=== PATIENT | male | born 1940 | race Caucasian/White ===

== ENCOUNTER 2016-10-13 08:48 | Outpatient (CLI) | payer MEDICARE ==
[~2016-10-13] VITALS: Ht 182.9 cm; Wt 112.0 kg
[~2016-10-13 08:48] MED LIST: ASPI325T32 PO; CIME-48; CLOP75TA PO; EZET1TAB41; FENO134C PO; GABA-488 PO; GLBR3T; HCT25T PO; HYDR-3720 PO; HYDR1CAP2; LOVA40TA2 PO; MTP25TSR; OMEG1CAP74 PO; OMEP20CA12 PO; PGLT30T PO; TRIA0.253 PO; WRF5T PO
[2016-10-13 09:13] VITALS: BP 150/85
[2016-10-13] MEDS ORDERED: OMEP40CA36 PO (09:46)
[2016-10-13] MEDS ORDERED: ATOR40TA PO (09:46)
[2016-10-13 10:06] LABS: BASOPHILS % (AUTO) 0 % (0-10); EOSINOPHILS # (AUTO) 0.2 10^3/uL (0.0-0.3); EOSINOPHILS % (AUTO) 4 % (0-10); LYMPHOCYTES % (AUTO) 17 % (12-44); MEAN CORPUSCULAR HEMOGLOBIN 32 PG (25-34); MEAN CORPUSCULAR HGB CONC 32 G/DL (32-36); MEAN CORPUSCULAR VOLUME 101 FL (80-99); MEAN PLATELET VOLUME 9.9 FL (7.4-10.4); MONOCYTES # (AUTO) 0.6 X 10^3 (0.0-1.0); MONOCYTES % (AUTO) 10 % (0-12); NEUTROPHILS % (AUTO) 69 % (42-75); PLATELET COUNT 179 10^3/uL (130-400); RED BLOOD COUNT 3.93 10^6/uL (4.35-5.85); RED CELL DISTRIBUTION WIDTH 14.6 % (10.0-14.5); WHITE BLOOD COUNT 5.8 10^3/uL (4.3-11.0)
[2016-10-13 10:27] LABS: CALCIUM 9.1 MG/DL (8.5-10.1); CREATININE SERUM 2.09 MG/DL (0.60-1.30); POTASSIUM 4.4 MMOL/L (3.6-5.0)
== END 2016-10-13 09:40 | disposition home or self-care (01) ==
LOC: PREOP 08:48
PROVIDERS: ATTEND Orthopaedic Surgery Orthopaedic Surgery of the Spine
DX: Z01.812 Encounter for preprocedural laboratory examination (principal); Z11.2 Encounter for screening for other bacterial diseases; M48.06 Spinal stenosis, lumbar region
CPT/HCPCS: 36415; 80048; 85025; 87081

== ENCOUNTER 2016-10-22 10:20 | Inpatient (IN) | payer MEDICARE ==
[~2016-10-22] VITALS: Ht 182.9 cm; Wt 107.1 kg
[~2016-10-22 10:20] MED LIST changes: +ACET325T49 PO; +ATOR40TA PO; +ATOR40TA70 PO; +BACL10TA PO; +CLOP75TA28 PO; +DOCU100C37 PO; +HYDR-3820 PO; +LACT20SO2 PO; +OMEP40CA36 PO; +ONDA4VIA28 IV; +PIOG30TA26 PO; +POLY17PO23 PO; +SCOP1PAT TD; +WARF-48 PO
[2016-10-22] MEDS ORDERED: HYDROcodone/APAP 5 MG/325 MG (LORTAB) TAB PO PRN (11:30)
--- NOTE | 2016-10-22 11:42 | Physical Therapy Daily Note ---
PT Daily Note-Current Subjective Reports he is exhausted. Reports he has not slept well for 2 nights. Sighs frequently, rubs his head frequently. Pain Numeric Pain Scale: 5-Moderate Pain Location: Posterior Location Body Site: Back (low back) Pain Description: Ache (/sore) Mental Status Patient Orientation: Person, Confused (at times), Place, Time, Situation Transfers Functional [place] Measure 0=Not Assessed/NA 4=Minimal Assistance 1=Total Assistance 5=Supervision or Setup 2=Maximal Assistance 6=Modified [place] 3=Moderate Assistance 7=Complete IndependenceIRFPAI Quality Coding Scale 6 Independent with activity with or without an assistive device 5 Patient requires set up or clean up by helper. Patient completes activity by themselves 4 Supervision or touching assist (CGA). [place] provide cues , steadying assist 3 The helper provides less than half the effort to complete the activity 2 The helper provides more than half the effort to complete the activity 1 Dependent. The helper does all the effort to complete an activity 7 Patient refused to complete or attempt activity 9 The patient did not perform the activity before the current illness or injury 88 Not attempted due to Medical conditions or safety concerns Transfers (B, C, W/C) (FIM): 3 Sit to Lying (QC): 3 (assist to lift both legs into bed) Sit to Stand (QC): 4 (CGA with skilled cues for hand placement) Gait Training Gait (FIM): 2 Distance (FIM): 5=497-50 ft Distance: 50ft Gait Assistive Device: FWW Turns in room and in out of bathroom with fWW with skilled cues for safety. Exercises Seated Therapy Exercises: Ankle pumps, Long arc quads, Hip flexion Seated Reps: 10 (For LE strength to improve gait and transfers. ) Assessment Pt appears "weary" at this time, tired, reports nothing tastes good...in general , does not appear to feel well. Requests a warm blanket. Sips on diet Sprite and chicken broth. Pt in bed post treatment with needs met. Pt is pleasant and cooperative and attentive. PT Plan Problem List Problem List: Activity Tolerance, Functional Strength Treatment/Plan Treatment Plan: Continue Plan of Care Treatment Duration: Nov 05, 2016 Visits Per Week: 10-15 Safety Risks/Education Patient Education: Transfer Techniques, Safety Issues Teaching Recipient: Patient Teaching Methods: Demonstration, Discussion Response to Teaching: Reinforcement Needed Time/GCodes Time In: 1100 Time Out: 1140 Total Billed Treatment Time: 40 Total Billed Treatment visit EX 25 FA 15 KEVIN KAY PT Oct 22, 2016 11:42
--- NOTE | 2016-10-22 11:59 | Physical Therapy Evaluation ---
PT Evaluation-General Medical Diagnosis Admission Date Oct 22, 2016 at 10:20 Medical Diagnosis: spinal stenosis Onset Date: Oct 20, 2016 Therapy Diagnosis Therapy Diagnosis: generalized weakness/debility Height/Weight Height (Feet): 6 Height (Inches): 0.00 Weight (Pounds): 247 Weight (Ounces): 0.0 Weight Bear Status Weight Bearing Restriction: Weight Bearing/Tolerated Location Restriction: LE Bilateral Referral Physician: [place] Reason for Referral: Evaluation/Treatment Medical History Pertinent Medical History: CABG, DM, Renal Insufficiency Additional Medical History s/p L3-5 laminectomy Current History transfer to ARU Reviewed History: Yes Social History Home: Multilevel Current Living Status: Spouse Entry Into Home: Stairs With Railing PT Steps Into Home: 4 PT Steps Inside Home: 18 Prior/Core FIM Prior Level of Function Functional [place] Measure 0=Not Assessed/NA 4=Minimal Assistance 1=Total Assistance 5=Supervision or Setup 2=Maximal Assistance 6=Modified [place] 3=Moderate Assistance 7=Complete [place] Bed Mobility: 7 Transfers (B,C,W/C) (FIM): 7 Gait: 7 Locomotion: 7 PT Evaluation-Current Subjective Patient c/o fatigue, N & V. Agrees to PT. Pain Numeric Pain Scale: 5-Moderate Pain Location: Lower Location Body Site: Back Pain Description: Ache, Acute Comment: incision site Pt/Family Goals return to home next week Objective Patient Orientation: Normal For Age Problem Solving: Good Attachments: Oxygen (2L) ROM/Strength ROM Lower Extremities bilateral LE WFL Strenght Lower Extremities right knee flexion/extension 4-/5; hip flexion 3/5; ankle dorsi/plantarflexion 4 /5 left knee flexion/extension 4-/5; hip flexion 3/5; ankle dorsi/plantarflexion 4/ 5 Integumentary/Posture Integumentary refer to nursing notes Bowel Incontinence: No Bladder Incontinence: No Posture slight trunk flexed posture Neuromuscular (Tone, Coordination, Reflexes) grossly intact coordination Sensory Vision: Functional Hearing: Functional Sensation Right Lower Extremit: Impaired Sensation Left Lower Extremity: Impaired Transfers Functional [place] Measure 0=Not Assessed/NA 4=Minimal Assistance 1=Total Assistance 5=Supervision or Setup 2=Maximal Assistance 6=Modified [place] 3=Moderate Assistance 7=Complete IndependenceIRFPAI Quality Coding Scale 6 Independent with activity with or without an assistive device 5 Patient requires set up or clean up by helper. Patient completes activity by themselves 4 Supervision or touching assist (CGA). [place] provide cues , steadying assist 3 The helper provides less than half the effort to complete the activity 2 The helper provides more than half the effort to complete the activity 1 Dependent. The helper does all the effort to complete an activity 7 Patient refused to complete or attempt activity 9 The patient did not perform the activity before the current illness or injury 88 Not attempted due to Medical conditions or safety concerns Transfers (B, C, W/C) (FIM): 4 Scootin Rollin Roll Left to Right (QC): 4 Supine to/from Sit: 4 Sit to/from Stand: 5 Sit to Lying (QC): 4 Lying to Sitting/Side of Bed(Q: 4 Sit to Stand (QC): 5 Chair/Xyc-mj-Sgclb Xfer(QC): 5 Car Transfer (QC): 4 assist with 1 LE with bed mobility and car transfer Gait Does the Patient Walk?: Yes Mode of Locomotion: Walk Anticipated Mode of Locomotion: Walk Gait (FIM): 5 Distance (FIM): 3=150 ft Walk 10 feet (QC): 5 Walk 50 ft with 2 Turns(QC): 5 Walk 150 ft (QC): 5 Walking 10ft/uneven surface-QC: 5 Distance: 300' x 2' 150' x 1 Gait Level of Assist: 5 Gait Persons Needed: 1 Gait Assistive Device: FWW Comments/Gait Description slow, steady, functional Wheelchair Training Does the Pt Use a Wheelchair?: No Stairs Stairs (FIM): 5 #of Steps: 12 Level of Assist: 5 1 Step (curb) (QC): 5 4 Steps (QC): 5 12 Steps (QC): 5 Balance Sitting Static: Normal Sitting Dynamic: Normal Standing Static: Normal Standing Dynamic: Normal Assessment/Needs 76 y.o. male, will benefit from skilled PT to address functional strength and mobility to improve current LOF and to safely return to home with spouse at maximum LOF. Patient is limited with mobility due to pain and extreme fatigue. Patient requires multiple recovery periods due to fatigue and requires time to complete all functional tasks. Rehab Potential: Good PT Senior Living Goals Senior Living Goals PT Operations Analyst Goals Time Frame: Nov 05, 2016 Transfers (B,C,W/C) (FIM): 6 Sit to Lying (QC): 6 Lying-Sitting on Side/Bed(QC): 6 Sit to Stand (QC): 6 Rollin Roll Left to Right (QC): 6 Chair/Duk-qi-Aihta Xfer(QC): 6 Car Transfer (QC): 6 Does the Patient Walk: Yes Gait (FIM): 6 Gait distance (FIM): 3=150 ft Walk 10 feet (QC): 6 Walk 10ft-Uneven Surface(QC): 6 Walk 50ft with 2 Turns (QC): 6 Walk 150 ft (QC): 6 Gait Level of Assist: 6 Gait Assistive Device: FWW Stairs (FIM): 5 # of Steps: 12 1 Step (curb) (QC): 5 4 Steps (QC): 5 12 Steps (QC): 5 Stairs Level Of Assist: 6 Picking up an Object (QC): 5 PT Plan Problem List Problem List: Activity Tolerance, Functional Strength, Bed Mobility, Other ( pain) Treatment/Plan Treatment Plan: Continue Plan of Care Treatment Plan: Bed Mobility, Education, Functional Activity Porsche, Functional Strength, Group Therapy, Gait, Safety, Therapeutic Exercise, Transfers Treatment Duration: Nov 05, 2016 # of days/week 5-6 Visits Per Week: 11 Minutes/Day (M-F): 60-90 Minutes/Day (Sat/Berrios): PRN Pt/Family Agrees w/Plan: Yes Safety Risks/Education Patient Education: Safety Issues Teaching Recipient: Patient, Significant Other Teaching Methods: Demonstration, Discussion Response to Teaching: Verbalize Understanding, Return Demonstration Discharge Recommendations Therapy D/C Recommendations: Home w/ Family Support, Physical Therapy Home Care Time/GCodes Time In: 1020 Time Out: 1050 Total Billed Treatment Time: 30 Total Billed Treatment 1 visit EVMod 30 min MICHEL LAGUNA PT Oct 22, 2016 11:59
[2016-10-22] MEDS: ACETAMINOPHEN 325 MG TABLET/CAPLET (TYLENOL) PO PRN ×2 (12:20→20:12)
[2016-10-22] MEDS: BACLOFEN 10 MG (LIORESAL) TAB PO PRN ×2 (12:20→20:12)
[2016-10-22] MEDS: ONDANSETRON 4 MG/2 ML (SDV) Z0FRAN IV PRN (15:12)
--- NOTE | 2016-10-22 15:28 | Occupational Therapy Eval ---
OT Evaluation-General/PLF Medical Diagnosis Admission Date Oct 22, 2016 at 10:20 Medical Diagnosis: spinal stenosis, L3-5 PLDF, L5-S1 harware removal Onset Date: Oct 19, 2016 Therapy Diagnosis Therapy Diagnosis: Weakness Height/Weight Height (Feet): 6 Height (Inches): 0.00 Weight (Pounds): 247 Weight (Ounces): 0.0 Precautions Comments back precautions Weight Bear Status Weight Bearing Restriction: Weight Bearing/Tolerated Location Restriction: LE Bilateral Referral Physician: [place] Referral Reason: Activity Tolerance, Self Care, Evaluation/Treatment, Strengthening/ROM Medical History Pertinent Medical History: CABG, DM, PVD, Renal Insufficiency Additional Medical History lumbar surgery x 3, cornea transplant Current History Pt. lives in [place] with spouse. Reviewed History: Yes Social History Home: [facility] Current Living Status: Spouse Entry Into Home: Stairs With Railing Steps Into Home: 4 Steps Inside Home: 18 ADL-Prior Level of Function ADL PLOF Comments Prior to this surgery, pt. was independent with basic self care. DME/Equipment: Shower, Tub/Shower DME/Equipment Comments Pt. has a tub/shower combo on second floor, and shower on first floor. Spouse states that he has a 3 wheeled walker that was given to him, and that he will be needing another one. Pt. does not have a shower seat for the shower. Occupation: Retired Drive Self: Yes OT Current Status Subjective Pt. reports 5/10 back pain. Requests pain medication. OT notified nursing. Appearance Pt. in bed. Agreed to OT treatment. Mental Status/Objective Patient Orientation: Person Attachments: Drains, Oxygen Current Upper Extremity ROM WFL Upper Extremity Strength NT due to back precautions. ADL-Treatment Functional [place] Measure 0=Not Assessed/NA 4=Minimal Assistance 1=Total Assistance 5=Supervision or Setup 2=Maximal Assistance 6=Modified [place] 3=Moderate Assistance 7=Complete IndependenceIRFPAI Quality Coding Scale 6 Independent with activity with or without an assistive device 5 Patient requires set up or clean up by helper. Patient completes activity by themselves 4 Supervision or touching assist (CGA). [place] provide cues , steadying assist 3 The helper provides less than half the effort to complete the activity 2 The helper provides more than half the effort to complete the activity 1 Dependent. The helper does all the effort to complete an activity 7 Patient refused to complete or attempt activity 9 The patient did not perform the activity before the current illness or injury 88 Not attempted due to Medical conditions or safety concerns Lower Body Dressing (FIM): 3 (Pt. requires mod assistance to don socks and shoes. ) Transfers (B, C, W/C) (FIM): 5 (Pt. requires SBA to transfer from supine to and from sit, and sit to stand.) Other Treatments Pt. is educated on back precautions. Pt. is issued adaptive equipment and educated on how to use it. Pt. is issued toilet tongs and educated on how to use them. Pt. and spouse verbalize understanding. Pt. is able to don slippers with LH shoe spoon. Education OT Patient Education: Correct positioning, Energy conservation, Exercise program, Modified ADL techniques, Progress toward Goal/Update tx plan, Purpose of tx/functional activities, Reviewed precautions, Rehab process, Transfer techniques, Use of adapted equipment Teaching Recipient: Patient Teaching Methods: Demonstration, Discussion Response to Teaching: Verbalize Understanding, Return Demonstration OT Short Term Goals Short Term Goals Time Frame: Oct 22, 2016 1=Demonstrate adherence to instructed precautions during ADL tasks. 2=Patient will verbalize/demonstrate understanding of assistive devices/ modifications for ADL. 3=Patient will improve strength/tolerance for activity to enable patient to perform ADL's. OT Grapple Yarder Operator Goals Grapple Yarder Operator Goals Time Frame: Nov 05, 2016 Eating (FIM): 6 Eating (QC): 6 Groomin Oral Hygiene (QC): 6 Bathing(FIM): 5 Shower/Bathe Self (QC): 5 Upper Body Dressing(FIM): 6 Upper Body Dressing (QC): 6 Lower Body Dressing(FIM): 6 Lower Body Dressing (QC): 6 On/Off Footwear (QC): 6 Toileting(FIM): 6 Toileting Hygiene (QC): 6 Transfers (B,C,W/C) (FIM): 6 Toilet/Commode Transfer(FIM): 6 Toilet/Commode Transfer (QC): 6 Shower Transfer(FIM): 5 Additional Goals: 1-Demonstrate ADL Tasks, 2-Verbalize Understanding, 3- ImproveStrength/[place]orsche 1=Demonstrate adherence to instructed precautions during ADL tasks. 2=Patient will verbalize/demonstrate understanding of assistive devices/ modifications for ADL. 3=Patient will improve strength/tolerance for activity to enable patient to perform ADL's. OT Education/Plan Problem List/Assessment Assessment: Decreased Activ Tolerance, Impaired I ADL's, Impaired Self-Care Skills Discharge Recommendations Plan/Recommendations: Continue POC Therapy D/C Recommendations: Home w/ Family Support, Occupational Therapy Home Care Equpiment Recommendations-D/C: Bath Chair Comment Pt. will need a walker. Treatment Plan/Plan of Care Treatment,Training & Education: Yes Patient would benefit from OT for education, treatment and training to promote independence in ADL's, mobility, safety and/or upper extremity function for ADL' s. Plan of Care: ADL Retraining, Functional Mobility, Group Exercise/Act as Ind, UE Funct Exercise/Act Treatment Duration: Nov 05, 2016 Visits Per Week: 10-12 Rehab Potential: Good Time/GCodes Start Time: 12:00 Stop Time: 12:45 Total Time Billed (hr/min): 45 Billed Treatment Time 1, EVmod x 15minutes, ADL x 30minutes FELIPE ALLEN OT Oct 22, 2016 15:28
--- NOTE | 2016-10-22 15:36 | Therapy Group Daily Note ---
Therapy Daily Group Note Other/Notes Pt ambulated with CGA to OT/PT group. Group consisted of introductions (name, place, childhood memories), socialization, activities that promote skills for daily living skills (problem solving, memory, sequencing, UE reach/grasp, core strengthening and fine motor skills). Pt ambulated back to room with CGA. After therapy, sitting in chair with call light/phone in reach. All needs met in room. Start Time: 13:00 Stop Time: 14:10 Total Billed Treatment Time: 70 Total Billed Treatment 1-GRP KEVIN KLEIN Oct 22, 2016 15:36
[2016-10-22] MEDS ORDERED: inSUlin (REGULAR) HUMAN 1 UNIT/0.01 ML (CHARGE PER UNIT) SC SCH (16:00)
[2016-10-22 18:57] VITALS: BP 156/76
--- NOTE | 2016-10-22 19:45 | HISTORY AND PHYSICAL ---
DATE OF SERVICE: 10/22/2016 CHIEF COMPLAINT: Difficulty walking. HISTORY OF PRESENT ILLNESS: The patient is a 76-year-old male with a history of peripheral vascular disease, diabetes mellitus, diabetic retinopathy, diabetic peripheral neuropathy and chronic back pain who underwent L3-5 laminectomy with L3-5 instrumentation with removal of L5 instrumentation and reinsertion of fixation with autograft and allograft with ortho spine at [facility] on 10/19/2016. Postoperatively the patient had some nausea and emesis associated with mild hypoxia felt to be due to morphine. Medications were adjusted. He was referred to inpatient rehabilitation unit for ongoing care and therapies.He has had delirum/confusion potop felt to be due to pain meds PRIOR LEVEL OF FUNCTION: He had been independent and living with his spouse in [place] prior to this but with increasing low back pain radiating into his buttocks. CURRENT LEVEL OF FUNCTION: He reports 5/10 pain in his lower back around the incision site. He is reported to be continent of bowel and bladder. He is min assist for transfers. Standby assist for ambulation short distances with a front wheel walker. The patient is mod assist for lower body dressing, mid assist for upper body dressing, set up for eating and grooming, mod assist for toilet transfers and toileting.He has a DANIELLE drain in place PAST MEDICAL HISTORY: Coronary artery disease, diabetes mellitus, peripheral vascular disease, renal insufficiency. PAST SURGICAL HISTORY: He has had prior lumbar spine surgery. Cornea transplant.He has had several revascularization procedureswith DR Mahendra HARP at [facility] and is maintained on Coumadin ALLERGIES: There are no medication allergies. FAMILY HISTORY: Noncontributory. SOCIAL HISTORY: Retired. Lives with spouse in [place] in a multiple-level home. Originally from [place] near [place]. 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 REVIEW OF SYSTEMS: A 10-point review of systems significant for shortness of breath on supplemental O2, low back incisional pain.Intermittent confusion MEDICATIONS: Therapeutic multivitamins 1 tablet p.o. daily, Protonix 40 mg p.o. daily, Colace 100 mg p.o. b.i.d., lactulose 10 grams p.o. b.i.d., MiraLax 17 grams p.o. each day at bedtime, regular insulin sliding scale regimen four times daily before meals and at bedtime, baclofen 10 mg p.o. p.r.n. spasm, hydrocodone APAP 5 1 tablet p.o. q. 4 hours p.r.n. moderate pain, Tylenol 650 mg p.o. q. 4 hours p.r.n. mild pain, Zofran 4 mg IV q. 4 hours p.r.n. nausea and vomiting.Lipitor 40 mg po Q evening.Plavix 75 mg po q day fenobibrate 134 mg po q day. Gabapentin 600mg po TID. Omeprazole 40 mg po q day. Pioglitazone 30 mg po Q day. Triazolam 0.25 mg po q hs. Coumadin 5 mg alternating with 2.5 mg po q day. PHYSICAL EXAMINATION: GENERAL: Somewhat obese male appearing his stated age, alert and oriented, lying in bed in no acute distress.He has intermittent confusion VITAL SIGNS: O2 saturation is 98% on 3 liters O2 by nasal cannula, BMI 33.5 kg per meter square, HEENT: Vision, speech, hearing grossly intact. No oral lesions noted. O2 by nasal cannula in place. NECK: Supple without mass. HEART: Regular rhythm. LUNGS: Clear. ABDOMEN: Soft, nontender, bowel sounds present. EXTREMITIES: No leg edema, no calf tenderness. SKIN: Incision healing well. MUSCULOSKELETAL: The patient has functional passive range of motion of all 4 extremities. Has functional upper extremity strength. Strength lower extremities 4-/5 left knee flexion and extension, hip flexion 3/5, ankle dorsi/plantar flexion 4/5. Sensation to light touch is impaired in both feet. He has grossly intact coordination.Cognition and orientation varies with time IMPRESSION: 1. Ambulatory dysfunction secondary to lumbar spinal stenosis, status post decompressive laminectomy L3-5, ortho spine, 10/19/2016. 2. Postoperative nausea/emesis, improving with adjustment of medications. 3. Chronic obstructive pulmonary disease, oxygen dependent. 4. Diabetes mellitus type 2. 5. Diabetic peripheral neuropathy. 6. Hypertensive chronic kidney disease, postoperative hypotensive, now normotensive. 7. Nicotine dependence. 8. Osteoarthritis. 9. Hypercholesterolemia. 10. Tremor. 11. Peripheral vascular disease. 12. - Chronically anticoagulated 13. Postoperative anemia. 15. Intermittent confusion with postop delirium felt to be medication related PLAN: The patient will have a comprehensive program of inpatient rehabilitation with a goal of maximizing level of functional independence prior to discharge home with spouse. The patient will have PT/OT 90 minutes each day each discipline 5 days a week for regaining strength, conditioning, balance, ADLs, any patient family caregiver training necessary, any adaptive equipment training necessary. Speech therapy will do cognitive assessment and treat as indicated. Rehabilitation nursing will assist with bowel, bladder, skin care, medication administration, pain management and wound care. Social service to assist with discharge planning and community reentry. Respiratory therapy to assist with O2 administration and wean as able. Followup with ortho spine and hospitalist service as per their schedule. His PCP in [place] is Dr. Tim Burgess.D/C Hydrocodone due to increased confusion and utilize Tylenol as much as possible.Routine admission labs as well as INR and Adjust Coumadin as needed ESTIMATED LENGTH OF STAY: Fourteen days. PROGNOSIS: Rehab prognosis appears good for a goal of discharging home with spouse, modified independent to supervision for ADLs and mobility skills with good wound healing and decreased pain. DIET: Regular. CODE STATUS: Full code. Therapy with cardiac and fall precautions. Job ID: [id number] DocumentID: [id number] Dictated Date: 10/22/2016 18:47:42 Parachute Folder Date: 10/22/2016 19:44:01 Dictated By: SHONDA MCFADDEN MD MTDD
[2016-10-22] MEDS: ATORVASTATIN 40 MG (LIPITOR) TABLET PO SCH (20:11)
[2016-10-22] MEDS: DOCUSATE SODIUM 100 MG (COLACE) CAP PO SCH (20:11)
[2016-10-22] MEDS: warFARin 2.5 MG (COUMADIN) TAB PO SCH (20:12)
[2016-10-22] MEDS: LACTULOSE SYRUP 10GM/15ML (ENULOSE) 30ML UDC PO SCH (20:12)
[2016-10-22] MEDS: FENOFIBRATE 134 MG (LOFIBRA) CAPSULE PO SCH (20:12)
[2016-10-22] MEDS: inSUlin (REGULAR) HUMAN 1 UNIT/0.01 ML (CHARGE PER UNIT) SC SCH (20:13)
[2016-10-22] MEDS: POLYETHYLENE GLYCOL 17 GM (MIRALAX) PACK PO SCH (20:13)
[2016-10-22] MEDS ORDERED: TEMAZEPAM 15 MG (RESTORIL) CAP PO SCH (21:00)
[2016-10-23] MEDS: ACETAMINOPHEN 325 MG TABLET/CAPLET (TYLENOL) PO PRN ×2 (02:39→07:41)
[2016-10-23] MEDS: BACLOFEN 10 MG (LIORESAL) TAB PO PRN (02:39)
[2016-10-23 05:03] VITALS: BP 178/81
[2016-10-23] MEDS: inSUlin (REGULAR) HUMAN 1 UNIT/0.01 ML (CHARGE PER UNIT) SC SCH ×4 (05:46→21:16)
[2016-10-23] MEDS: MULTIVIT W/MINERALS TAB (THERAGRAN M) PO SCH (05:54)
[2016-10-23] MEDS: PIOGLITAZONE 30MG (ACTOS) TAB PO SCH (05:54)
[2016-10-23] MEDS: PANTOPRAZOLE 40 MG (PROTONIX) TAB PO SCH (05:54)
[2016-10-23 06:18] LABS: RED BLOOD COUNT 3.06 10^6/uL (4.35-5.85); RED CELL DISTRIBUTION WIDTH 14.1 % (10.0-14.5); WHITE BLOOD COUNT 6.6 10^3/uL (4.3-11.0)
[2016-10-23 06:43] LABS: CALCIUM 9.6 MG/DL (8.5-10.1); CREATININE SERUM 1.66 MG/DL (0.60-1.30); POTASSIUM 3.9 MMOL/L (3.6-5.0)
[2016-10-23 06:46] LABS: INR 1.1 (0.8-1.4); PROTHROMBIN TIME PATIENT 13.4 SEC (12.2-14.7)
[2016-10-23] MEDS: ONDANSETRON 4 MG/2 ML (SDV) Z0FRAN IV PRN ×2 (07:40→11:57)
[2016-10-23] MEDS: LACTULOSE SYRUP 10GM/15ML (ENULOSE) 30ML UDC PO SCH ×2 (07:41→21:00)
[2016-10-23] MEDS: DOCUSATE SODIUM 100 MG (COLACE) CAP PO SCH ×2 (07:41→20:59)
[2016-10-23] MEDS: CLOPIDOGREL 75 MG (PLAVIX) TABLET PO SCH (07:42)
--- NOTE | 2016-10-23 08:49 | PM&R Post Admission Assessment ---
Post Admission Physician Asses The preadmission screen agrees with the post admission assessment that the patient is a good candidate for inpatient rehabilitation. The patient will have a comprehensive program of inpatient rehabilitation with a goal of maximizing level of functional independence prior to discharge home with spouse. The patient will have PT/OT ninety minutes per day, each discipline, five days a week for gait,strengthening, conditioning, balance, ADLs , any patient/family/caregiver training necessary. Speech therapy to do cognitive assessment and treat as indicated. He does have fluctuating confusion and [place] has been d/cd at this time Will Utilize Tylenol for now Rehabilitation nursing to assist with bowel, bladder, skin, wound care, medication administration, pain management.as well as reorientation Mushroom Cultivator to assist with discharge planning, community reentry. SCD's for DVT prophylaxis.as well as coumadin He appears to be well motivated to participate in three hours of therapy a day. He should be able to tolerate three hours of therapy a day from a medical standpoint and surgical. He should benefit from the three hours of therapy a day. He has a reasonable discharge plan, reasonable discharge rehabilitation goals and a supportive family. He has various comorbidities that need to be closely monitored with medications and treatments adjusted on a daily basis as needed. These include: Pain manangement Postop confusion Chronic anticoagulation HTN with an episode of postop hypotension DM ELOISA 02 dependent Postop nausea CRI Barriers to discharge for this patient who had been independent prior to this are for him to be modified independent to supervision for ADLs and mobility skills prior to discharge home with spouse, so as to lessen the burden of the caregivers. Risks for this patient include: 1. Fall 2. Fracture 3. DVT 4. Pulmonary embolism 5. Wound infection 6. Skin breakdown 7. Contractures 8. Poorly controlled pain 9. Urinary retention 10. UTI 11. Respiratory infection 12. Aspiration 13. worsening confusion 14 Worsening respiratory insufficiemcy 15. Poorly controlled HTN or hypotension 16. Worsening renal insufficiency Estimated Length of Stay: 14 days Prognosis: Rehab prognosis appears good for goal of discharge home with spouse modified independent to supervision for ADLs and mobility skills. SHONDA MCFADDEN MD Oct 23, 2016 08:49
--- NOTE | 2016-10-23 08:55 | Individualized Plan of Care ---
Individualized Plan of Care Rehab Nursing IPOC Order Admission Date Oct 22, 2016 at 10:20 Current Orders Orders Admission-Acute Rehab Unit (10/22/16 11:22) Vital Signs: Routine 08,16,00 (10/22/16 11:22) Social Service (10/22/16 11:22) Rehab Nursing Orders-Ipoc (10/22/16 11:22) Physical Therapy Rehab Orders (10/22/16 11:22) Occupational Therapy Rehab Ord (10/22/16 11:22) Speech Therapy Rehab Orders (10/22/16 11:22) Intake & Output Shift Assessme 06,14, (10/22/16 11:22) Precautions (Aru) (10/22/16 11:22) Weekly Weight (Lbs) WEEK (10/22/16 11:22) Oxygen-Administer 07,19 (10/22/16 11:27) Sequential Compression Device 08,20 (10/22/16 11:27) General/Regular (10/22/16 Dinner) Baclofen Tablet (Lioresal Tablet) (10/22/16 11:30) Docusate Sodium Capsule (Colace Capsule) (10/22/16 21:00) Lactulose Oral Solution (Enulose Oral So (10/22/16 21:00) Hydrocodone/Apap 5/325 Tablet (Lortab 5 (10/22/16 11:30) Therapeutic Multivitamin Tab (Vitamins, (10/23/16 07:00) Pantoprazole Tablet (Protonix Tablet) (10/23/16 07:00) Polyethylene Glycol Powder Pkt (Miralax (10/22/16 21:00) Acetaminophen Tablet/Caplet (Tylenol T (10/22/16 11:30) Ondansetron Injection (Zofran Injectio (10/22/16 11:30) Insulin (Regular) Human (Humulin R (Per (10/22/16 16:00) Consult Physician (10/22/16 11:39) Patient Visit (10/22/16 ) Pt Eval Moderate Complexity (10/22/16 ) Patient Visit (10/22/16 ) Exercise Therap, Ea 15 Min (10/22/16 ) Functional Activities, Ea 15 (10/22/16 ) Patient Visit (6/8/17 ) Cbc No Diff (10/23/16 05:00) Basic Metabolic Panel (10/23/16 05:00) Protime With Inr (10/23/16 05:00) Insulin (Regular) Human (Humulin R (Per (10/22/16 21:00) Atorvastatin Tablet (Lipitor) (10/22/16 21:00) Clopidogrel Tablet (Plavix Tablet) (10/23/16 09:00) Fenofibrate,Micronized Capsule (Lofibra (10/22/16 21:00) Pioglitazone Tablet (Actos Tablet) (10/23/16 07:00) Pharmacy Communication (Pharmacy Communi (10/22/16 19:45) Warfarin Tablet (Coumadin Tablet) (10/22/16 20:00) Warfarin Tablet (Coumadin Tablet) (10/23/16 18:00) Temazepam Capsule (Restoril Capsule) (10/22/16 21:00) Rehab Nursing Orders: Diseage Management, Edu in Press Rel Techn, Hydration Management, Nutrition Management, Pain Management Toilet every (bladder): (hrs): 2 hours while awake PRN PT IPOC Problem List: Activity Tolerance, Functional Strength, Bed Mobility, Other ( pain) Treatment Plan: Continue Plan of Care Bed Mobility, Education, Functional Activity Porsche, Functional Strength, Group Therapy, Gait, Safety, Therapeutic Exercise, Transfers Treatment Duration: Nov 05, 2016 Visits Per Week: 11 Minutes/Day (M-F): 60-90 Minutes/Day (Sat/Berrios): PRN OT IPOC Problems: Decreased Activ Tolerance, Impaired I ADL's, Impaired Self-Care Skills Plan of Care: ADL Retraining, Functional Mobility, Group Exercise/Act as Ind, UE Funct Exercise/Act Treatment Duration: Nov 05, 2016 Visits Per Week: 10-12 Minutes/Day (M-F): 60-90 Minutes/Day (Sat/Berrios): prn Physician IPOC Medical Issues being managed closely and that require the 24 hour availability of a physician:Postop nausea Postop Confusion Poorly controlled HTN episodes of hypotension Poorly controlled DM Sub or supratherapeutic INR Worsening Resp insufficiency Worsening renal insufficiency Poorly controlled Pain Medical Issues: DVT Prophylaxis, Falls Precautions, Fluid/Electrolyte/ Nutrition Balance, Infection Protection, Pain Management, Wound Care, Other ( List) (as per above) Brief Synthesis of Preadmission Screen, Post-Admission Evaluation, and Therapy Evaluations:76 yo male s/p lumbar spine surgery for spinal stenosis with ortho spine who had postop issues with nausea and confusion felt to be due to meds Pain meds currently being adjusted Patient had been Independent and living with spouse in [facility] prior to this but having increased low back pain, Hospitalist folling patient here as PCP in [place].Patient has had multiple revasculization procedures with DR Mccray in the past at [facility] and is chroncally anticoagulated. The patient has a supportive spouse. Medical Prognosis: good Anticipated Length of Stay: 11-05-16 Rehab Goals Modified Independent for adls and mobilty skills Anticipated discharge destinat: Home with spouse and [facility] SHONDA MCFADDEN MD Oct 23, 2016 08:55
--- NOTE | 2016-10-23 09:04 | PM & R (SOAP) Progress Note ---
Subjective Time Seen by Provider: 08:30 Subjective/Events-last exam Patient was seen in his room this AM Gettting up on his own and going to bathroom on his own with WW and 02 tether line Hydrocodone has been d/cd due to increased confusion but patient having poorly controlled pain with tylenol alone DANIELLE drain remains in place Discussed with RN She will f/u with orthospine and or Hospitalist for further recs Review of Systems Musculoskeletal: back pain Neurological: Confusion Objective Exam Last Set of Vital Signs Vital Signs Date Time Temp Pulse Resp B/P (MAP) Pulse Ox O2 Delivery O2 Flow Rate FiO2 10/23/16 08:01 3.00 10/23/16 05:03 98.2 83 20 178/81 95 Capillary Refill : I&O Bad tableGeneral: Other (confused at times mentation slowed) HEENT: Atraumatic, PERRLA, EOMI, Mucous Memb Moist/[place], Other (o2 in place) Neck: Supple, No JVD Lungs: Other (crackles rt base) Heart: Regular Rate Abdomen: Normal Bowel Sounds, Soft, No Tenderness Extremities: Other (trace edema) Skin: Other (DANIELLE drain in place [place] dressing in place over lumbar spine) Neuro: Other (3/5 strength at hips 4-/5 at knees 4/5 at ankles Decreased sensation to touch at feet) Psych/Mental Status: Other (confused at times) Results Lab Laboratory Tests 10/22/16 15:58: Glucometer 172H 10/22/16 20:08: Glucometer 150H 10/23/16 05:45: Glucometer 126H 10/23/16 06:10: White Blood Count 6.6, Red Blood Count 3.06L, Hemoglobin 9.8L, Hematocrit 31L, Mean Corpuscular Volume 101H, Mean Corpuscular Hemoglobin 32, Mean Corpuscular Hemoglobin Concent 32, Red Cell Distribution Width 14.1, Platelet Count 186, Mean Platelet Volume 9.0, Prothrombin Time 13.4, INR Comment 1.1, Sodium Level 139, Potassium Level 3.9, Chloride Level 105, Carbon Dioxide Level 25, Anion Gap 9, Blood Urea Nitrogen 20H, Creatinine 1.66H, Estimat Glomerular Filtration Rate 41, BUN/Creatinine Ratio 12, Glucose Level 122H, Calcium Level 9.6 Assessment/Plan Assessment s/p Luimbar spine surgery for Spinal stenosis PVD with chronic anticoagulation HTN with episode of hypotension postop Postop nausea DM HLP CRI Reso insuff/ELOISA on supplemental 02 Plan Continue PT/OT/Pain management Trend INR and adjust coumadin as needed WEan from 02 as able F/U with Hospitalist service and orthospine SHONDA Santamaria MD Oct 23, 2016 09:04
--- NOTE | 2016-10-23 11:18 | ST Cognitive Linguistic Eval ---
Speech Evaluation-General Medical Diagnosis Spinal Stenosis, L3-5 PLDF, L5-S1 Harware Removal Onset Date: Oct 19, 2016 Therapy Diagnosis Therapy Diagnosis: Moderate Cognitive Impairment Precautions Precautions/Isolations: Fall Prevention, Standard Precautions, Pressure Ulcer Referral Referring Physician: Dr. Wilberto Magana Medical History Pertinent Medical History: CABG, DM, PVD, Renal Insufficiency Reviewed History: Yes Social History Current Living Status: Spouse Speech PLF-Current Status Prior Level of Function The patient was unable to provide information regarding prior level of cognitive function. Per patient's , the patient was demonstrating "some troubles with memory" prior to the spinal procedure. Subjective The patient was recently admitted to [facility] following a spinal procedure. Post procedure, the patient has demonstrated increased confusion which his family is attributing to his current pain medication. The patient was laying in bed upon entrance. The patient did not greet the clinician , however, was agreeable to participation in the cognitive evaluation. To note: The patient was tearful throughout the majority of the evaluation, however, was unable to communicate to the clinician the reason. Language Eval: Auditory Follows 1-Step Commands: Moderate (Frequent repetition was required for participation and cooperation throughout the evaluation.) Follows General Conversations: Severe (The patient demonstrated continuous tangential thought, rarely responding to conversational questions poised by the clinician.) Language Eval: Verbal Language Produces Auto, Serial Info: Mild Word Finding: Moderate Requests Basic Needs: Mild States Basic Personal Info: Mild Cognitive Patient Orientation The patient was oriented to month and day of week. The patient was unable to state the year or date. Objective Cognitive Domain Attention: Moderate Memory: Moderate Problem Solving: Moderate Objective Impression The patient demonstrated poor attention to task and tangential thought throughout the evaluation. Final results were difficult for the clinician to comprehend due to the level of confusion and emotion the patient was continuously displaying. At this time, the patient demonstrates a moderate cognitive impairment which may be the result of pain medication. Further evaluation with improved cooperation will be necessary for complete results. Communication/Social Cognition Comprehension: 2 Expression: 2 Social Interaction: 1 Problem Solvin Memory: 1 Speech Patient Assess Expression of Ideas/Wants: Frequently (2) Understanding V[place]al Content: Sometimes Understands(2) Brief Interview-Mental Status: Yes Repetition of Three Words: Three (3) Temporal Orientation: Year: No answer (0) Temporal Orientation: Month: Accurate within 5 days(2) Temporal Orientation: Day: Correct (1) Recall : Wear to say "Sock": No, could not recall (0) Recall : Color: No, could not recall (0) Recall : Bed: Yes, no cue required (2) Speech Short Term Goals Short Term Goals Short Term Goals 1. The patient will demonstrated 80% accuracy with simple orientation information, independently. 2. The patient will display 90% accuracy with safety problem solving, independently. 3. The patient will attend to a structured task for three minutes with mild clinician verbal prompting. 4. The patient will demonstrate 80% accuracy with structured executive functioning (sequencing) tasks with mild clinician cueing. Time Frame-STG: One Week Speech C Consultant Goals C Consultant Goals 1. The patient will demonstrate improved cognitive linguistic skills for increased function and safety with ADL's in the least restrictive setting. Time Frame: Two Weeks Comprehension: 3 Expression: 4 Social Interaction: 3 Problem Solvin Memory: 3 Speech-Plan Treatment Plan Speech Therapy Treatment Plan: Continue Plan of Care Continue skilled speech pathology to target improved functional cognitive skills. Treatment Duration: Nov 13, 2016 # of days/week Three to four. Visits Per Week: Three to four. Minutes/Day (M-F): 30 Rehab Potential: Guarded Safety Risks/Education Teaching Recipient: Patient, Family, Significant Other Teaching Methods: Discussion Response to Teaching: Verbalize Understanding Education Topics Provided: Results, Plan of Care Time Speech Therapy Time In: 10:00 Speech Therapy Time Out: 10:30 Total Billed Time: 30 Billed Treatment Time Saul ESTEFANIA PITTMANCAMERON ST Oct 23, 2016 11:18
--- NOTE | 2016-10-23 11:30 | Progress Note-Hospitalist ---
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 Pt had about 30 min of sleep last night Pt takes Triazolam at home for sleep Pt is cold all the time, but he is afebrile Pt presents with early signs of dementia in this examiner's opinion Patient Interview: Pt's was advised to bring Triazolam to the pt; she will return home to retrieve this. A substitute will be provided until then. Pt has had 2 BMs since yesterday Pt has not been eating or sleeping and has been nauseous. Pt's family was reassured that his surgery went very well, but his recovery time may take a while. Pt's is happy with the way his surgery went, but is frustrated with the long recovery time and his lack of sleep. Physical exam stable. Lungs sound perfect. AFVSS, Fatigued but not will and O x 3, family at bedside RRR, CTAB no rales noted No edema Laboratory Tests 10/23/16 06:10 Assessment: s/p uncomplicated L3-5 Laminectomy and L3-5 Instrumention with removal of L5 instrumentation and reinsertion of fixation with autograft and allograft POD # 4 Delirium with N/V and oversedation with mild hypoxia due to morphine and changed to Dilaudid due to renal insufficiency but then had side effects and changed to Fentanyl then had issues with Phenergan and continues to have issues even with low dose Hydrocodone so adding Ultram to the Tylenol CRI slightly improved creatinine 1.66 today and that is his baseline HTN HLP PVD severe DM Presumed ELOISA Tremors due to weakness and narcotics now resolved Post op constipation now resolved Chronic insomnia Plan: Ultram/Tramadol for pain 50 TID Retrieve Triazolam from home and restart for improvement of insomnia I tried my best to reassure the family and the patient and had conferred with Dr. Villanueva regarding the delirium and the vascular dementia component that is an undercurrent of the whole issue and renal insufficiency and sensitivity to pain medication and tried to answer all their questions and reassured but very difficult situation at this time Scribed by Argenis Dodson under the direct supervision of Dr. Poole. JARETH POOLE DO Oct 23, 2016 11:30
--- NOTE | 2016-10-23 12:10 | Physical Therapy Daily Note ---
PT Daily Note-Current Subjective Pt. in bed, agrees to Rx after encouragement from . Pt. very side tracked and distracted by some conversation with his that he continues to bring up about his son getting some medications or something for him from his home. Pt. asking his multiple times and telling this CLEANER OPERATOR he cant participate until he has this taken care of. Pt. for very long time would not rate pain but after a while rates it at 7/10. Pt. c/o nausea that he cant shake. Pain Numeric Pain Scale: 7 Location: Medial Location Body Site: Back Pain Description: Burning Appearance pt. requested this CLEANER OPERATOR look at his back and dressing b/c it feels so uncomfortable back there. CLEANER OPERATOR noted that drain in back is out. Nurse was alerted to this . Drain was taken away, very little drainage noted Mental Status Patient Orientation: Confused, Mumbles Attachments: Oxygen (3L), Other-See Comments (DANIELLE drain which fell out during Rx ) Transfers Functional Kimble Measure 0=Not Assessed/NA 4=Minimal Assistance 1=Total Assistance 5=Supervision or Setup 2=Maximal Assistance 6=Modified Kim[place] 3=Moderate Assistance 7=Complete IndependenceIRFPAI Quality Coding Scale 6 Independent with activity with or without an assistive device 5 Patient requires set up or clean up by helper. Patient completes activity by themselves 4 Supervision or touching assist (CGA). [place] provide cues , steadying assist 3 The helper provides less than half the effort to complete the activity 2 The helper provides more than half the effort to complete the activity 1 Dependent. The helper does all the effort to complete an activity 7 Patient refused to complete or attempt activity 9 The patient did not perform the activity before the current illness or injury 88 Not attempted due to Medical conditions or safety concerns Transfers (B, C, W/C) (FIM): 5 Scootin Rollin Supine to/from Sit: 5 Sit to/from Stand: 5 Bed to/from Chair: 5 Gait Training Does the Patient Walk?: Yes Gait (FIM): 4 Distance (FIM): 3=150 ft (x3) Gait Level of Assist: 4 (only b/c pt. needs assist with O2 and appears confused and somewhat distressed, furrowed brow, look of confusion) Gait Persons Needed: 1 Gait Assistive Device: FWW slow, slightly kyphotic over walker for heavy wt bearing onto FWW Exercises Supine Ex: Ankle pumps, Quad Set, Rolling, Glut sets, Heel Slides, Short Arc Quads, Scooting, Hip abd/add Supine Reps: 15 Standing: Hip Abduction, Heel/toe raises, Marching Standing Reps: 12 NuStep Minutes: 5 NuStep Workload: 1 Treatments pt. c/o his incision pain in his back increased while using nustep. this was not tolerated well and was DCd Assessment Current Status: Fair Progress pt. c/o nausea during rx, appeared somewhat confused . BP 174/94, O2 sats >90% with O2 on. Nausea and c/o limit participation. PT Care Home Goals Care Home Goals PT Senior Foreman Goals Time Frame: Nov 05, 2016 Transfers (B,C,W/C) (FIM): 6 Sit to Lying (QC): 6 Lying-Sitting on Side/Bed(QC): 6 Sit to Stand (QC): 6 Rollin Roll Left to Right (QC): 6 Chair/Ons-lz-Qdckj Xfer(QC): 6 Car Transfer (QC): 6 Does the Patient Walk: Yes Gait (FIM): 6 Gait distance (FIM): 3=150 ft Walk 10 feet (QC): 6 Walk 10ft-Uneven Surface(QC): 6 Walk 50ft with 2 Turns (QC): 6 Walk 150 ft (QC): 6 Gait Level of Assist: 6 Gait Assistive Device: FWW Stairs (FIM): 5 # of Steps: 12 1 Step (curb) (QC): 5 4 Steps (QC): 5 12 Steps (QC): 5 Stairs Level Of Assist: 6 Picking up an Object (QC): 5 PT Plan Treatment/Plan Treatment Plan: Continue Plan of Care Treatment Plan: Bed Mobility, Education, Functional Activity Porsche, Functional Strength, Group Therapy, Gait, Safety, Therapeutic Exercise, Transfers Treatment Duration: Nov 05, 2016 Visits Per Week: 11 Minutes/Day (M-F): 60-90 Minutes/Day (Sat/Berrios): PRN Safety Risks/Education Patient Education: Gait Training, Transfer Techniques Teaching Recipient: Patient Teaching Methods: Demonstration, Discussion Response to Teaching: Verbalize Understanding, Return Demonstration, Reinforcement Needed Time/GCodes Time In: 1100 Time Out: 1200 Total Billed Treatment Time: 60 Total Billed Treatment 1,GT25m,FA20m,EX15m G Codes Necessary: No LUEBBER, JOSE DAVID A CLEANER OPERATOR Oct 23, 2016 12:10
[2016-10-23] MEDS ORDERED: METOCLOPRAMIDE INJ 10 MG/2 ML (REGLAN) IVP NR (13:39)
--- NOTE | 2016-10-23 14:32 | Diagnostic Imaging Report ---
INDICATION: Abdominal distention EXAMINATION: KUB 2:08 PM There are postop changes from dorsal fusion of the lumbar spine from L3-S1. There are postop changes from endograft repair of abdominal aortic aneurysm. Bowel gas pattern is normal. There are no pathologic masses or calcifications. IMPRESSION: Postsurgical changes as noted. No acute abnormality seen. Dictated by: Dictated on workstation # [id number]
--- NOTE | 2016-10-23 14:32 | Diagnostic Imaging Report ---
INDICATION: Abnormal breath sounds PA and lateral chest Heart size and pulmonary vascularity are normal. Lungs are clear. There are no effusions or pneumothoraces. There is a small calcified granuloma at the left lung base unchanged from 08/14/2009. IMPRESSION: No acute abnormalities in the chest. Dictated by: Dictated on workstation # [id number]
--- NOTE | 2016-10-23 15:05 | Therapy Group Daily Note ---
Therapy Daily Group Note Patient Education Topic Home Safety Exercises Fine Motor, UE Exercise Other/Notes Pt ambulated with FWW to UPSETTER/OT lunch group. Pt gathered in [facility] to eat lunch together. Pt's discussed home safety in the kitchen. Topics were of safety awareness while using kitchen appliances, food preparations, kitchen utensils and problem solving safety issues. Pt contributed to discussions appropriately and demonstrated understanding of all areas discussed. Pt was able to complete own set up for lunch then use regular utensils to cook food and feed self. After therapy, pt lying in bed with call light/phone in reach. All needs met in room. Start Time: 11:50 Stop Time: 13:00 Total Billed Treatment Time: 70 Total Billed Treatment 1-GRP KEVIN KLEIN Oct 23, 2016 15:05
--- NOTE | 2016-10-23 15:25 | Occupational Ther Daily Note ---
OT Current Status-Daily Note Subjective Pt sleeping in bed. Pt woke to name. C/o pain, pain med already given by nrsg. Mental Status/Objective Patient Orientation: Person, Place, Time, Situation Functional [place] Measure 0=Not Assessed/NA 4=Minimal Assistance 1=Total Assistance 5=Supervision or Setup 2=Maximal Assistance 6=Modified [place] 3=Moderate Assistance 7=Complete [place] Attachments: Drains, IV ADL-Treatment Functional [place] Measure 0=Not Assessed/NA 4=Minimal Assistance 1=Total Assistance 5=Supervision or Setup 2=Maximal Assistance 6=Modified [place] 3=Moderate Assistance 7=Complete IndependenceIRFPAI Quality Coding Scale 6 Independent with activity with or without an assistive device 5 Patient requires set up or clean up by helper. Patient completes activity by themselves 4 Supervision or touching assist (CGA). [place] provide cues , steadying assist 3 The helper provides less than half the effort to complete the activity 2 The helper provides more than half the effort to complete the activity 1 Dependent. The helper does all the effort to complete an activity 7 Patient refused to complete or attempt activity 9 The patient did not perform the activity before the current illness or injury 88 Not attempted due to Medical conditions or safety concerns Eating (FIM): 5 (After set up, pt able to use regular utensils to feed self.) Eating (QC): 5 (After set up, pt able to use regular utensils to feed self.) Grooming (FIM): 5 (Pt requires supervision with grooming when standing at sink. Pt fatigues quickly.) Oral Hygiene (QC): 4 (Pt requires supervision with grooming when standing at sink. Pt fatigues quickly.) Bathing (FIM): 3 (Using elevated shower seat, grabbar, hand held and long handle sponge pt was able to bathe all areas except buttocks and lower legs.) Bathing Location: L Arm, R Arm, L Upper Leg, R Upper Leg, Chest, Abdomen, Perineal Area Shower/Bathe Self (QC): 3 (Using elevated shower seat, grabbar, hand held and long handle sponge pt was able to bathe all areas except buttocks and lower legs.) Upper Body (FIM): 5 (After set up, pt dons/doffs by self.) Upper Body Dressing (QC): 4 (After set up, pt dons/doffs by self.) Lower Body Dressing (FIM): 3 (Pt educated on AE for lower body dressing. Pt required hand over hand assist to manipulate AE while using it to don clothing. Pt able to stand and hike pants over hips.) Lower Body Dressing (QC): 3 (Pt educated on AE for lower body dressing. Pt required hand over hand assist to manipulate AE while using it to don clothing. Pt able to stand and hike pants over hips.) On/Off Footwear (QC): 2 (Assist with AE to complete. Unable to complete on own due to back precautions.) Toileting (FIM): 4 (Using grabbars and elevated toilet seat pt is able to manipulate clothing though requires assistance to cleanse self.) Toileting Hygiene (QC): 3 (Using grabbars and elevated toilet seat pt is able to manipulate clothing though requires assistance to cleanse self.) Transfers (B, C, W/C) (FIM): 4 (CGA for transfers using FWW.) Toilet/Commode Transfer (FIM): 4 (CGA for transfers using FWW.) Toilet Transfer (QC): 3 (CGA for transfers using FWW.) Shower Transfer(FIM): 4 (CGA for transfers using FWW.) Pt fatigues quickly and requires multiple recovery breaks throughout ADLs. Pt got very frustrated and cried during treatment that it was to complete ADLs. After therapy, pt lying in bed with call light/phone in reach. All needs met in room. Safety measures in place. OT Short Term Goals Short Term Goals Time Frame: Oct 22, 2016 1=Demonstrate adherence to instructed precautions during ADL tasks. 2=Patient will verbalize/demonstrate understanding of assistive devices/ modifications for ADL. 3=Patient will improve strength/tolerance for activity to enable patient to perform ADL's. OT Wrap Turner Goals Prison Goals Time Frame: Nov 05, 2016 Eating (FIM): 6 Eating (QC): 6 Groomin Oral Hygiene (QC): 6 Bathing(FIM): 5 Shower/Bathe Self (QC): 5 Upper Body Dressing(FIM): 6 Upper Body Dressing (QC): 6 Lower Body Dressing(FIM): 6 Lower Body Dressing (QC): 6 On/Off Footwear (QC): 6 Toileting(FIM): 6 Toileting Hygiene (QC): 6 Transfers (B,C,W/C) (FIM): 6 Toilet/Commode Transfer(FIM): 6 Toilet/Commode Transfer (QC): 6 Shower Transfer(FIM): 5 Comprehension(FIM): 3 Expression (FIM): 4 Social Interaction(FIM): 3 Problem Solving(FIM): 3 Memory(FIM): 3 Additional Goals: 1-Demonstrate ADL Tasks, 2-Verbalize Understanding, 3- ImproveStrength/Porsche 1=Demonstrate adherence to instructed precautions during ADL tasks. 2=Patient will verbalize/demonstrate understanding of assistive devices/ modifications for ADL. 3=Patient will improve strength/tolerance for activity to enable patient to perform ADL's. OT Education/Plan Discharge Recommendations Plan/Recommendations: Continue POC Treatment Plan/Plan of Care Patient would benefit from OT for education, treatment and training to promote independence in ADL's, mobility, safety and/or upper extremity function for ADL' s. Plan of Care: ADL Retraining, Functional Mobility, Group Exercise/Act as Ind, UE Funct Exercise/Act Treatment Duration: Nov 05, 2016 Visits Per Week: 10-12 Minutes/Day (M-F): 60-90 Minutes/Day (Sat/Berrios): prn Rehab Potential: Guarded Time/GCodes Start Time: 09:00 Stop Time: 10:00 Total Time Billed (hr/min): 60 Billed Treatment Time 1 visit-ADL 4 (60 min) KEVIN KLEIN Oct 23, 2016 15:25
[2016-10-23] MEDS ORDERED: ONDANSETRON 4 MG/2 ML (SDV) Z0FRAN IV PRN (15:30)
[2016-10-23] MEDS: warFARin 5 MG (COUMADIN) TAB PO SCH (17:47)
[2016-10-23 18:39] VITALS: BP 165/91
[2016-10-23] MEDS: FENOFIBRATE 134 MG (LOFIBRA) CAPSULE PO SCH (20:59)
[2016-10-23] MEDS: ATORVASTATIN 40 MG (LIPITOR) TABLET PO SCH (20:59)
[2016-10-23] MEDS: POLYETHYLENE GLYCOL 17 GM (MIRALAX) PACK PO SCH (21:01)
[2016-10-23] MEDS: TRIAZOLAM 0.25 MG PO SCH (23:12)
[2016-10-24 05:34] VITALS: BP 154/82
[2016-10-24] MEDS: inSUlin (REGULAR) HUMAN 1 UNIT/0.01 ML (CHARGE PER UNIT) SC SCH ×4 (05:36→20:14)
[2016-10-24] MEDS: MULTIVIT W/MINERALS TAB (THERAGRAN M) PO SCH (06:04)
[2016-10-24] MEDS: PANTOPRAZOLE 40 MG (PROTONIX) TAB PO SCH (06:04)
[2016-10-24] MEDS: PIOGLITAZONE 30MG (ACTOS) TAB PO SCH (06:04)
[2016-10-24] MEDS: LACTULOSE SYRUP 10GM/15ML (ENULOSE) 30ML UDC PO SCH ×2 (09:26→20:19)
[2016-10-24] MEDS: DOCUSATE SODIUM 100 MG (COLACE) CAP PO SCH ×2 (09:27→20:18)
[2016-10-24] MEDS: CLOPIDOGREL 75 MG (PLAVIX) TABLET PO SCH (09:27)
[2016-10-24] MEDS: BACITRACIN OINTMENT 28 GM TUBE TOP SCH (09:28)
--- NOTE | 2016-10-24 13:06 | Physical Therapy Daily Note ---
PT Daily Note-Current Subjective Pt. in bed, difficult to motivate. present and encouraging ; inquiring with pt. as to what she can get him to eat , stating she will go out and bring something in if it sounds good to him. Pt. seems to stall to get up for therapy and is confused about time of day. Later in Rx c/o that he is nauseous again like he was yesterday and cant continue. Pain Numeric Pain Scale: 0-No Pain Appearance pale and clammy when c/o he was nauseous Mental Status Patient Orientation: Person, Confused, Situation Attachments: Oxygen (3L) pt. inaccurate at what time of day and where he is. states he is in [place]. Transfers Functional [place] Measure 0=Not Assessed/NA 4=Minimal Assistance 1=Total Assistance 5=Supervision or Setup 2=Maximal Assistance 6=Modified [place] 3=Moderate Assistance 7=Complete IndependenceIRFPAI Quality Coding Scale 6 Independent with activity with or without an assistive device 5 Patient requires set up or clean up by helper. Patient completes activity by themselves 4 Supervision or touching assist (CGA). [place] provide cues , steadying assist 3 The helper provides less than half the effort to complete the activity 2 The helper provides more than half the effort to complete the activity 1 Dependent. The helper does all the effort to complete an activity 7 Patient refused to complete or attempt activity 9 The patient did not perform the activity before the current illness or injury 88 Not attempted due to Medical conditions or safety concerns Gait Training Does the Patient Walk?: Yes Gait (FIM): 4 Distance (FIM): 3=150 ft (150,75x2) Gait Level of Assist: 4 Gait Persons Needed: 1 Gait Assistive Device: FWW pt. had to stop to rest on way back with c/o nausea and weakness Exercises Supine Ex: Ankle pumps, Quad Set, Rolling, Glut sets, Heel Slides, Short Arc Quads, Scooting, Hip abd/add Supine Reps: 15 Treatments much time spent assessing pt. today as he c/o again of nausea and cold sweat Assessment Current Status: Fair Progress past 2 days pt. has not tolerated Rx well secondary to c/o nausea. Mentions to this WELDER JOURNEYMAN today that he is on a lot of meds at home and not even sure what all but that he takes hydrocodone every night. Asks" am I withdrawing from that"? PT Snf Goals Certified Credit Counselor Goals PT Certified Credit Counselor Goals Time Frame: Nov 05, 2016 Transfers (B,C,W/C) (FIM): 6 Sit to Lying (QC): 6 Lying-Sitting on Side/Bed(QC): 6 Sit to Stand (QC): 6 Rollin Roll Left to Right (QC): 6 Chair/Opd-xu-Wfngh Xfer(QC): 6 Car Transfer (QC): 6 Does the Patient Walk: Yes Gait (FIM): 6 Gait distance (FIM): 3=150 ft Walk 10 feet (QC): 6 Walk 10ft-Uneven Surface(QC): 6 Walk 50ft with 2 Turns (QC): 6 Walk 150 ft (QC): 6 Gait Level of Assist: 6 Gait Assistive Device: FWW Stairs (FIM): 5 # of Steps: 12 1 Step (curb) (QC): 5 4 Steps (QC): 5 12 Steps (QC): 5 Stairs Level Of Assist: 6 Picking up an Object (QC): 5 PT Plan Problem List Problem List: Other (poor tolerance of Rx, nausea and fatigue, "cold sweat ") Treatment/Plan Treatment Plan: Continue Plan of Care Treatment Plan: Bed Mobility, Education, Functional Activity Porsche, Functional Strength, Group Therapy, Gait, Safety, Therapeutic Exercise, Transfers Treatment Duration: Nov 05, 2016 Visits Per Week: 11 Minutes/Day (M-F): 60-90 Minutes/Day (Sat/Berrios): PRN Safety Risks/Education Patient Education: Gait Training, Transfer Techniques Teaching Recipient: Patient Teaching Methods: Demonstration, Discussion Response to Teaching: Unable to Return Demonstration, Unable to Comprehend, Reinforcement Needed Time/GCodes Time In: 1215 Time Out: 1245 Total Billed Treatment Time: 30 Total Billed Treatment 1,GT15,EX15 G Codes Necessary: JOSE DAVID Do WELDER JOURNEYMAN Oct 24, 2016 13:06
[2016-10-24] MEDS: warFARin 2.5 MG (COUMADIN) TAB PO SCH (18:02)
[2016-10-24] MEDS: MECLIZINE 25 MG (ANTIVERT) TAB PO SCH ×2 (18:02→20:18)
[2016-10-24] MEDS: ONDANSETRON 8 MG (ZOFRAN) ORAL DISSOLVE TAB PO PRN (18:02)
[2016-10-24 18:11] VITALS: BP 170/84
[2016-10-24] MEDS: FENOFIBRATE 134 MG (LOFIBRA) CAPSULE PO SCH (20:18)
[2016-10-24] MEDS: ATORVASTATIN 40 MG (LIPITOR) TABLET PO SCH (20:18)
[2016-10-24] MEDS: POLYETHYLENE GLYCOL 17 GM (MIRALAX) PACK PO SCH (20:19)
[2016-10-24] MEDS: TRIAZOLAM 0.25 MG PO SCH (23:21)
[2016-10-25 05:19] VITALS: BP 164/85
[2016-10-25] MEDS: inSUlin (REGULAR) HUMAN 1 UNIT/0.01 ML (CHARGE PER UNIT) SC SCH ×4 (06:23→21:11)
[2016-10-25] MEDS: PIOGLITAZONE 30MG (ACTOS) TAB PO SCH (06:23)
[2016-10-25] MEDS: MULTIVIT W/MINERALS TAB (THERAGRAN M) PO SCH (06:23)
[2016-10-25] MEDS: PANTOPRAZOLE 40 MG (PROTONIX) TAB PO SCH (06:23)
[2016-10-25] MEDS: CLOPIDOGREL 75 MG (PLAVIX) TABLET PO SCH (08:21)
[2016-10-25] MEDS: MECLIZINE 25 MG (ANTIVERT) TAB PO SCH ×3 (08:21→21:23)
[2016-10-25] MEDS: BACITRACIN OINTMENT 28 GM TUBE TOP SCH (08:22)
[2016-10-25] MEDS: LACTULOSE SYRUP 10GM/15ML (ENULOSE) 30ML UDC PO SCH ×2 (08:22→19:31)
[2016-10-25] MEDS: DOCUSATE SODIUM 100 MG (COLACE) CAP PO SCH ×2 (08:22→19:30)
[2016-10-25] MEDS: ONDANSETRON 8 MG (ZOFRAN) ORAL DISSOLVE TAB PO PRN ×2 (09:14→16:57)
[2016-10-25] MEDS: warFARin 2.5 MG (COUMADIN) TAB PO SCH (17:00)
[2016-10-25 17:38] VITALS: BP 151/83
[2016-10-25] MEDS: POLYETHYLENE GLYCOL 17 GM (MIRALAX) PACK PO SCH (19:31)
[2016-10-25] MEDS: ATORVASTATIN 40 MG (LIPITOR) TABLET PO SCH (21:23)
[2016-10-25] MEDS: FENOFIBRATE 134 MG (LOFIBRA) CAPSULE PO SCH (21:23)
[2016-10-25] MEDS: TRIAZOLAM 0.25 MG PO SCH (23:01)
[2016-10-26 05:16] VITALS: BP 149/78
[2016-10-26] MEDS: inSUlin (REGULAR) HUMAN 1 UNIT/0.01 ML (CHARGE PER UNIT) SC SCH (05:43)
[2016-10-26] MEDS: PIOGLITAZONE 30MG (ACTOS) TAB PO SCH (06:13)
[2016-10-26] MEDS: MULTIVIT W/MINERALS TAB (THERAGRAN M) PO SCH (06:13)
[2016-10-26] MEDS: PANTOPRAZOLE 40 MG (PROTONIX) TAB PO SCH (06:13)
[2016-10-26] MEDS: LACTULOSE SYRUP 10GM/15ML (ENULOSE) 30ML UDC PO SCH ×2 (08:06→20:16)
[2016-10-26] MEDS: DOCUSATE SODIUM 100 MG (COLACE) CAP PO SCH ×2 (08:06→20:16)
[2016-10-26] MEDS: MECLIZINE 25 MG (ANTIVERT) TAB PO SCH (08:06)
[2016-10-26] MEDS: CLOPIDOGREL 75 MG (PLAVIX) TABLET PO SCH (08:06)
[2016-10-26] MEDS: BACITRACIN OINTMENT 28 GM TUBE TOP SCH (08:07)
--- NOTE | 2016-10-26 10:09 | Speech Therapy Daily Note ---
Speech Daily Progress Note Subjective Date Seen by Provider: Oct 26, 2016 Time Seen by Provider: 09:30 The patient was seated upright in recliner upon entrance. The patient greeted the clinician appropriately and was agreeable to participation in the cognitive treatment session. Per patient, he feels much better on this date and reports an improvement in confusion symptoms. Objective Due to patient's noted improvement, a re-assessment of cognitive function was provided ([facility]- [facility] Cognitive Assessment) with the following results: - Executive Function: The patient was able to accurately complete trail-making and clock drawing, independently. - Naming: The patient was able to name three of three black and white photographs accurately. - Memory: The patient was able to recall four of five single words immediately and four of five single words following a five minute delay. - Attention: The patient was able to repeat five digits forwards and three digits in reverse. The patient was able to identify a specific letter in a string of letters and accurately complete serial seven subtraction. - Language: The patient demonstrated minimal impairment in word-finding and was able to repeat short phrases. - Orientation: The patient was oriented to date, month, year, day, place, and city. The patient displayed a score of +26/30 correlating to cognitive function WNL. Per patient (and patient's ), the patient's initial confusion has improved. The patient believes the confusion was secondary to pain medication and reduced sleep. Assessment Assessment Current Status: Good Progress Treatment Plan Discontinue ST, Goals Met Communication Comprehension: 5 Expression: 5 Social Cognition Social Interaction: 5 Problem Solvin Memory: 4 Speech Short Term Goals Short Term Goals Short Term Goals 1. The patient will demonstrated 80% accuracy with simple orientation information, independently. 2. The patient will display 90% accuracy with safety problem solving, independently. 3. The patient will attend to a structured task for three minutes with mild clinician verbal prompting. 4. The patient will demonstrate 80% accuracy with structured executive functioning (sequencing) tasks with mild clinician cueing. Time Frame-STG: One Week Speech Intermediate Goals Intermediate Goals 1. The patient will demonstrate improved cognitive linguistic skills for increased function and safety with ADL's in the least restrictive setting. Time Frame: Two Weeks Comprehension: 3 Expression: 4 Social Interaction: 3 Problem Solvin Memory: 3 Speech-Plan Treatment Plan Speech Therapy Treatment Plan: Discontinue ST, Goals Met The patient has met all speech pathology goals at this time and will be discharged from skilled speech services. Treatment Duration: Nov 13, 2016 # of days/week Three to four. Visits Per Week: Three to four. Minutes/Day (M-F): 30 Rehab Potential: Guarded Safety Risks/Education Teaching Recipient: Patient, Significant Other Teaching Methods: Discussion Response to Teaching: Verbalize Understanding Education Topics Provided: Plan of Care, Results, Recommendations Time Speech Therapy Time In: 09:30 Speech Therapy Time Out: 10:00 Total Billed Time: 30 Billed Treatment Time 1DAVIE ELIZABETH ST Oct 26, 2016 10:08
--- NOTE | 2016-10-26 10:13 | Therapy Team Discharge Summary ---
Therapy Discharge Summary Discharge Recommendations Date of Discharge Therapy D/C Recommendations: Home w/ Family Support, Occupational Therapy Home Care Speech-Language Pathology The patient was recently admitted to [facility] following a spinal surgery. Upon admission, the patient demonstrated significant confusion and memory deficits. Skilled speech pathology focused on orientation, functional memory strategies, and safety problem solving. The patient demonstrated great improvement following increased sleep and a reduction in pain medication. At this time, the patient has met cognitive goals placed by speech pathology. The patient will be discharged from skilled speech services. If additional pain medication re-introduces increased confusion and delirium, speech pathology will re-assess the patient's cognitive level. PT Fdc Goals Fdc Goals PT Fdc Goals Time Frame: Nov 05, 2016 Transfers (B,C,W/C) (FIM): 6 Roll Left to Right (QC): 6 Sit to Lying (QC): 6 Lying-Sitting on Side/Bed(QC): 6 Sit to Stand (QC): 6 Chair/Uml-el-Durzw Xfer(QC): 6 Car Transfer (QC): 6 Does the Patient Walk: Yes Gait (FIM): 6 Gait distance (FIM): 3=150 ft Walk 10 feet (QC): 6 Walk 10ft-Uneven Surface(QC): 6 Walk 50ft with 2 Turns (QC): 6 Walk 150 ft (QC): 6 Gait Level of Assist: 6 Gait Assistive Device: FWW Stairs (FIM): 5 # of Steps: 12 1 Step (curb) (QC): 5 4 Steps (QC): 5 12 Steps (QC): 5 Stairs Level Of Assist: 6 Picking up an Object (QC): 5 OT Fdc Goals Cube Machine Tender Goals Time Frame: Nov 05, 2016 Eating (FIM): 6 Eating (QC): 6 Oral Hygiene (QC): 6 Grooming(FIM): 6 Bathing(FIM): 5 Shower/Bathe Self (QC): 5 Upper Body Dressing(FIM): 6 Upper Body Dressing (QC): 6 Lower Body Dressing(FIM): 6 Lower Body Dressing (QC): 6 On/Off Footwear (QC): 6 Toileting(FIM): 6 Toileting Hygiene (QC): 6 Transfers (B,C,W/C) (FIM): 6 Toilet/Commode Transfer(FIM): 6 Toilet/Commode Transfer (QC): 6 Shower Transfer(FIM): 5 Comprehension(FIM): 3 Expression (FIM): 4 Social Interaction(FIM): 3 Problem Solving(FIM): 3 Memory(FIM): 3 Additional Goals: 1-Demonstrate ADL Tasks, 2-Verbalize Understanding, 3- ImproveStrength/[place]orsche 1=Demonstrate adherence to instructed precautions during ADL tasks. 2=Patient will verbalize/demonstrate understanding of assistive devices/ modifications for ADL. 3=Patient will improve strength/tolerance for activity to enable patient to perform ADL's. Speech Fdc Goals Cube Machine Tender Goals 1. The patient will demonstrate improved cognitive linguistic skills for increased function and safety with ADL's in the least restrictive setting. Time Frame: Two Weeks Comprehension: 3 (MET) Expression: 4 (MET) Social Interaction: 3 (MET) Problem Solvin (MET) Memory: 3 (MET) CAMERON PITTMAN Oct 26, 2016 10:13
--- NOTE | 2016-10-26 12:11 | Physical Therapy Daily Note ---
PT Daily Note-Current Subjective Pt. states he turned a corner yesterday and is feeling so much better. Pain Numeric Pain Scale: 0-No Pain Mental Status Patient Orientation: Person, Place, Time Attachments: Oxygen (started out 3L but titrated down to 0, off O2 with O2 sats at 97%) Transfers Functional [place] Measure 0=Not Assessed/NA 4=Minimal Assistance 1=Total Assistance 5=Supervision or Setup 2=Maximal Assistance 6=Modified [place] 3=Moderate Assistance 7=Complete IndependenceIRFPAI Quality Coding Scale 6 Independent with activity with or without an assistive device 5 Patient requires set up or clean up by helper. Patient completes activity by themselves 4 Supervision or touching assist (CGA). [place] provide cues , steadying assist 3 The helper provides less than half the effort to complete the activity 2 The helper provides more than half the effort to complete the activity 1 Dependent. The helper does all the effort to complete an activity 7 Patient refused to complete or attempt activity 9 The patient did not perform the activity before the current illness or injury 88 Not attempted due to Medical conditions or safety concerns Transfers (B, C, W/C) (FIM): 5 Scootin Rollin Supine to/from Sit: 5 Sit to/from Stand: 6 Bed to/from Chair: 5 Gait Training Does the Patient Walk?: Yes Gait (FIM): 5 Distance (FIM): 3=150 ft (220x2) Gait Level of Assist: 5 Gait Persons Needed: 1 Gait Assistive Device: FWW Stair Training Stair Training: Handrails/: 2 handrails Stairs (FIM): 5 #of Steps: 12 Stairs: Pattern: Step to Level of Assist: 5 Exercises Supine Ex: Heel Slides, Short Arc Quads, Scooting, Hip abd/add Supine Reps: 12 Standing: Hip Abduction, Heel/toe raises, Marching, Mini squats, Sit to Stand Standing Reps: 15 Assessment Current Status: Good Progress much improved, titrated off O2, communicated with nurse PT Custodial Goals Roto Rooter Operator Goals PT Roto Rooter Operator Goals Time Frame: Nov 05, 2016 Transfers (B,C,W/C) (FIM): 6 Sit to Lying (QC): 6 Lying-Sitting on Side/Bed(QC): 6 Sit to Stand (QC): 6 Rollin Roll Left to Right (QC): 6 Chair/Dpo-ld-Sxhkw Xfer(QC): 6 Car Transfer (QC): 6 Does the Patient Walk: Yes Gait (FIM): 6 Gait distance (FIM): 3=150 ft Walk 10 feet (QC): 6 Walk 10ft-Uneven Surface(QC): 6 Walk 50ft with 2 Turns (QC): 6 Walk 150 ft (QC): 6 Gait Level of Assist: 6 Gait Assistive Device: FWW Stairs (FIM): 5 # of Steps: 12 1 Step (curb) (QC): 5 4 Steps (QC): 5 12 Steps (QC): 5 Stairs Level Of Assist: 6 Picking up an Object (QC): 5 PT Plan Treatment/Plan Treatment Plan: Continue Plan of Care Treatment Plan: Bed Mobility, Education, Functional Activity Porsche, Functional Strength, Group Therapy, Gait, Safety, Therapeutic Exercise, Transfers Treatment Duration: Nov 05, 2016 Visits Per Week: 10-15 Minutes/Day (M-F): 60-90 Minutes/Day (Sat/Berrios): PRN Safety Risks/Education Patient Education: Gait Training, Transfer Techniques, Steps, Correct Positioning, Disease Process, Safety Issues Teaching Recipient: Patient Teaching Methods: Demonstration, Discussion Response to Teaching: Verbalize Understanding, Return Demonstration, Reinforcement Needed Time/GCodes Time In: 1100 Time Out: 1200 Total Billed Treatment Time: 60 Total Billed Treatment 1,GT30m,EX15m,FA15m G Codes Necessary: JOSE DAVID Do MIDWIFE Oct 26, 2016 12:11
--- NOTE | 2016-10-26 15:03 | Physical Therapy Daily Note ---
PT Daily Note-Current Subjective Patient is very agreeable to participate with PT. No c/o at this time. Pain Numeric Pain Scale: 3 Location: Lower Location Body Site: Back Pain Description: Ache Mental Status Patient Orientation: Normal For Age Transfers Functional [place] Measure 0=Not Assessed/NA 4=Minimal Assistance 1=Total Assistance 5=Supervision or Setup 2=Maximal Assistance 6=Modified [place] 3=Moderate Assistance 7=Complete IndependenceIRFPAI Quality Coding Scale 6 Independent with activity with or without an assistive device 5 Patient requires set up or clean up by helper. Patient completes activity by themselves 4 Supervision or touching assist (CGA). [place] provide cues , steadying assist 3 The helper provides less than half the effort to complete the activity 2 The helper provides more than half the effort to complete the activity 1 Dependent. The helper does all the effort to complete an activity 7 Patient refused to complete or attempt activity 9 The patient did not perform the activity before the current illness or injury 88 Not attempted due to Medical conditions or safety concerns Transfers (B, C, W/C) (FIM): 5 Scootin Rollin Roll Left to Right (QC): 5 Supine to/from Sit: 5 Sit to/from Stand: 5 Sit to Lying (QC): 5 Sit to Stand (QC): 5 Chair/Mpe-sk-Ettof Xfer(QC): 5 Bed to/from Chair: 5 Gait Training Does the Patient Walk?: Yes Gait (FIM): 5 Distance (FIM): 3=150 ft Distance: 150' x 2 Walk 10 feet (QC): 5 Walk 50 ft with 2 Turns(QC): 5 Walk 150 ft (QC): 5 Gait Level of Assist: 5 Gait Assistive Device: FWW reciprocal pattern; safe and functional with FWW Stair Training Stair Training: Handrails/: 2 handrails Stairs (FIM): 5 #of Steps: 20 1 Step (curb) (QC): 5 4 Steps (QC): 5 12 Steps (QC): 5 Stairs: Pattern: Step to Level of Assist: 5 Patient has 18 steps inside his home to negotiate. Patient performed without rest or difficulty. Assessment PT address stairs with patient to ensure safe return to home with 18 steps. Spouse is present. Patient returned to bed with needs met. PT Semi Truck Driver Goals Alf Goals PT Semi Truck Driver Goals Time Frame: Nov 05, 2016 Transfers (B,C,W/C) (FIM): 6 Sit to Lying (QC): 6 Lying-Sitting on Side/Bed(QC): 6 Sit to Stand (QC): 6 Rollin Roll Left to Right (QC): 6 Chair/Lkb-jh-Paqkn Xfer(QC): 6 Car Transfer (QC): 6 Does the Patient Walk: Yes Gait (FIM): 6 Gait distance (FIM): 3=150 ft Walk 10 feet (QC): 6 Walk 10ft-Uneven Surface(QC): 6 Walk 50ft with 2 Turns (QC): 6 Walk 150 ft (QC): 6 Gait Level of Assist: 6 Gait Assistive Device: FWW Stairs (FIM): 5 (met 10/26/16) # of Steps: 12 (met 10/26/16) 1 Step (curb) (QC): 5 (met 10/26/16) 4 Steps (QC): 5 (met 10/26/16) 12 Steps (QC): 5 (met 10/26/16) Stairs Level Of Assist: 6 Picking up an Object (QC): 5 PT Plan Treatment/Plan Treatment Plan: Continue Plan of Care Treatment Plan: Bed Mobility, Education, Functional Activity Porsche, Functional Strength, Group Therapy, Gait, Safety, Therapeutic Exercise, Transfers Treatment Duration: Nov 05, 2016 Visits Per Week: 10-15 Minutes/Day (M-F): 60-90 Minutes/Day (Sat/Berrios): PRN Safety Risks/Education Patient Education: Steps Teaching Recipient: Patient Teaching Methods: Demonstration Response to Teaching: Return Demonstration Discharge Recommendations Therapy D/C Recommendations: Physical Therapy Home Care Time/GCodes Time In: 1435 Time Out: 1450 Total Billed Treatment Time: 15 Total Billed Treatment 1 visit FA 15 min MICHEL LAGUNA PT Oct 26, 2016 15:03
--- NOTE | 2016-10-26 16:04 | Occupational Ther Daily Note ---
OT Current Status-Daily Note Subjective Pt. states, "I feel like I turned a corner yesterday." Appearance Pt. up in chair. Agrees to shower. Pt. on . Mental Status/Objective Patient Orientation: Person, Place Functional [place] Measure 0=Not Assessed/NA 4=Minimal Assistance 1=Total Assistance 5=Supervision or Setup 2=Maximal Assistance 6=Modified [place] 3=Moderate Assistance 7=Complete [place] ADL-Treatment Functional [place] Measure 0=Not Assessed/NA 4=Minimal Assistance 1=Total Assistance 5=Supervision or Setup 2=Maximal Assistance 6=Modified [place] 3=Moderate Assistance 7=Complete IndependenceIRFPAI Quality Coding Scale 6 Independent with activity with or without an assistive device 5 Patient requires set up or clean up by helper. Patient completes activity by themselves 4 Supervision or touching assist (CGA). [place] provide cues , steadying assist 3 The helper provides less than half the effort to complete the activity 2 The helper provides more than half the effort to complete the activity 1 Dependent. The helper does all the effort to complete an activity 7 Patient refused to complete or attempt activity 9 The patient did not perform the activity before the current illness or injury 88 Not attempted due to Medical conditions or safety concerns Grooming (FIM): 5 (Pt. able to brush teeth standing at sink with SBA.) Oral Hygiene (QC): 4 Bathing (FIM): 5 (Pt. utilized LH sponge. Able to wash body with SBA for safety.) Shower/Bathe Self (QC): 4 Upper Body (FIM): 5 Upper Body Dressing (QC): 4 Lower Body Dressing (FIM): 5 Lower Body Dressing (QC): 4 On/Off Footwear (QC): 5 Transfers (B, C, W/C) (FIM): 4 (CGA for balance.) Shower Transfer(FIM): 4 Pt. able to stand at sink with SBA while nursing changed dressing on back. Stood approximately 10 minutes. Pt. did utilize LH sponge in shower, and dressing stick, but declined using all other equipment. States, "I'm stubborn. " Education OT Patient Education: Correct positioning, Modified ADL techniques, Progress toward Goal/Update tx plan, Purpose of tx/functional activities, Reviewed precautions, Rehab process, Transfer techniques, Use of adapted equipment Teaching Recipient: Patient Teaching Methods: Demonstration, Discussion Response to Teaching: Verbalize Understanding, Return Demonstration OT Short Term Goals Short Term Goals Time Frame: Oct 22, 2016 1=Demonstrate adherence to instructed precautions during ADL tasks. 2=Patient will verbalize/demonstrate understanding of assistive devices/ modifications for ADL. 3=Patient will improve strength/tolerance for activity to enable patient to perform ADL's. OT Meal Grinder Tender Goals Meal Grinder Tender Goals Time Frame: Nov 05, 2016 Eating (FIM): 6 Eating (QC): 6 Groomin Oral Hygiene (QC): 6 Bathing(FIM): 5 Shower/Bathe Self (QC): 5 Upper Body Dressing(FIM): 6 Upper Body Dressing (QC): 6 Lower Body Dressing(FIM): 6 Lower Body Dressing (QC): 6 On/Off Footwear (QC): 6 Toileting(FIM): 6 Toileting Hygiene (QC): 6 Transfers (B,C,W/C) (FIM): 6 Toilet/Commode Transfer(FIM): 6 Toilet/Commode Transfer (QC): 6 Shower Transfer(FIM): 5 Comprehension(FIM): 3 (MET) Expression (FIM): 4 (MET) Social Interaction(FIM): 3 (MET) Problem Solving(FIM): 3 (MET) Memory(FIM): 3 (MET) Additional Goals: 1-Demonstrate ADL Tasks, 2-Verbalize Understanding, 3- ImproveStrength/Porsche 1=Demonstrate adherence to instructed precautions during ADL tasks. 2=Patient will verbalize/demonstrate understanding of assistive devices/ modifications for ADL. 3=Patient will improve strength/tolerance for activity to enable patient to perform ADL's. OT Education/Plan Problem List/Assessment Assessment: Decreased Activ Tolerance, Decreased UE Strength, Dependent Transfers, Impaired I ADL's, Impaired Self-Care Skills Discharge Recommendations Plan/Recommendations: Continue POC Therapy D/C Recommendations: Home w/ Family Support, Occupational Therapy Home Care Treatment Plan/Plan of Care Treatment,Training & Education: Yes Patient would benefit from OT for education, treatment and training to promote independence in ADL's, mobility, safety and/or upper extremity function for ADL' s. Plan of Care: ADL Retraining, Functional Mobility, Group Exercise/Act as Ind, UE Funct Exercise/Act Treatment Duration: Nov 05, 2016 Visits Per Week: 10-12 Minutes/Day (M-F): 60-90 Minutes/Day (Sat/Berrios): prn Rehab Potential: Fair Time/GCodes Start Time: 10:10 Stop Time: 10:55 Total Time Billed (hr/min): 45 Billed Treatment Time 1, ADL x 3 FELIPE ALLEN OT Oct 26, 2016 16:04
--- NOTE | 2016-10-26 16:09 | Occupational Ther Daily Note ---
OT Current Status-Daily Note Subjective No pain reported. Mental Status/Objective Patient Orientation: Person Functional [place] Measure 0=Not Assessed/NA 4=Minimal Assistance 1=Total Assistance 5=Supervision or Setup 2=Maximal Assistance 6=Modified [place] 3=Moderate Assistance 7=Complete [place] ADL-Treatment Functional [place] Measure 0=Not Assessed/NA 4=Minimal Assistance 1=Total Assistance 5=Supervision or Setup 2=Maximal Assistance 6=Modified [place] 3=Moderate Assistance 7=Complete IndependenceIRFPAI Quality Coding Scale 6 Independent with activity with or without an assistive device 5 Patient requires set up or clean up by helper. Patient completes activity by themselves 4 Supervision or touching assist (CGA). [place] provide cues , steadying assist 3 The helper provides less than half the effort to complete the activity 2 The helper provides more than half the effort to complete the activity 1 Dependent. The helper does all the effort to complete an activity 7 Patient refused to complete or attempt activity 9 The patient did not perform the activity before the current illness or injury 88 Not attempted due to Medical conditions or safety concerns Transfers (B, C, W/C) (FIM): 5 (SBA with walker to ambulate to therapy gym.) Other Treatment Pt. off oxygen. Talked with PT and nursing. Okay for pt. to be off. OT monitored oxygen throughout treatment. Between 93-95% throughout. Ambulated to therapy gym. Completed armbike x 10 minutes at min resistance, with one rest break. Sats good throughout. Completed this task to increase overall strength with daily tasks, such as pushing up off commode or out of chair. Worked on transfers, sit-stands with SBA noted to get out of chair with arms. Pt. states that he has been feeling better. Ambulated to room with all needs met. Education OT Patient Education: Correct positioning, Modified ADL techniques, Progress toward Goal/Update tx plan, Purpose of tx/functional activities, Reviewed precautions, Rehab process, Transfer techniques Teaching Recipient: Patient Teaching Methods: Demonstration, Discussion Response to Teaching: Verbalize Understanding, Return Demonstration OT Short Term Goals Short Term Goals Time Frame: Oct 22, 2016 1=Demonstrate adherence to instructed precautions during ADL tasks. 2=Patient will verbalize/demonstrate understanding of assistive devices/ modifications for ADL. 3=Patient will improve strength/tolerance for activity to enable patient to perform ADL's. OT Nursing Home Goals Nursing Home Goals Time Frame: Nov 05, 2016 Eating (FIM): 6 Eating (QC): 6 Groomin Oral Hygiene (QC): 6 Bathing(FIM): 5 Shower/Bathe Self (QC): 5 Upper Body Dressing(FIM): 6 Upper Body Dressing (QC): 6 Lower Body Dressing(FIM): 6 Lower Body Dressing (QC): 6 On/Off Footwear (QC): 6 Toileting(FIM): 6 Toileting Hygiene (QC): 6 Transfers (B,C,W/C) (FIM): 6 Toilet/Commode Transfer(FIM): 6 Toilet/Commode Transfer (QC): 6 Shower Transfer(FIM): 5 Comprehension(FIM): 3 (MET) Expression (FIM): 4 (MET) Social Interaction(FIM): 3 (MET) Problem Solving(FIM): 3 (MET) Memory(FIM): 3 (MET) Additional Goals: 1-Demonstrate ADL Tasks, 2-Verbalize Understanding, 3- ImproveStrength/Porsche 1=Demonstrate adherence to instructed precautions during ADL tasks. 2=Patient will verbalize/demonstrate understanding of assistive devices/ modifications for ADL. 3=Patient will improve strength/tolerance for activity to enable patient to perform ADL's. OT Education/Plan Problem List/Assessment Assessment: Decreased Activ Tolerance, Impaired I ADL's, Impaired Self-Care Skills Discharge Recommendations Plan/Recommendations: Continue POC Therapy D/C Recommendations: Home w/ Family Support, Occupational Therapy Home Care Treatment Plan/Plan of Care Treatment,Training & Education: Yes Patient would benefit from OT for education, treatment and training to promote independence in ADL's, mobility, safety and/or upper extremity function for ADL' s. Plan of Care: ADL Retraining, Functional Mobility, Group Exercise/Act as Ind, UE Funct Exercise/Act Treatment Duration: Nov 05, 2016 Visits Per Week: 10-12 Minutes/Day (M-F): 60-90 Minutes/Day (Sat/Berrios): prn Rehab Potential: Good Time/GCodes Start Time: 13:00 Stop Time: 13:30 Total Time Billed (hr/min): 30 Billed Treatment Time 1, EX x 2 FELIPE ALLEN OT Oct 26, 2016 16:09
[2016-10-26] MEDS: warFARin 5 MG (COUMADIN) TAB PO SCH (17:45)
[2016-10-26 17:59] VITALS: BP 148/80
--- NOTE | 2016-10-26 19:44 | PM & R (SOAP) Progress Note ---
Subjective Time Seen by Provider: 18:45 Subjective/Events-last exam Patient was seen on unit this evening with spouse Patient SBA for transfers Doing much better Dizziness improved with Meclizine Nausea resolved.Labs noted Will recheck see orders Objective Exam Last Set of Vital Signs Vital Signs Date Time Temp Pulse Resp B/P (MAP) Pulse Ox O2 Delivery O2 Flow Rate FiO2 10/26/16 17:59 98.9 80 24 148/80 92 Room Air 10/26/16 09:26 3.00 Capillary Refill : I&O Intake and Output 10/26/16 00:00 Intake Total 1000 ml Output Total 350 ml Balance 650 ml Intake Oral 1000 ml Output Urine Total 350 ml # Voids 5 # Bowel Movements 3 General: Other (confused at times mentation slowed) HEENT: Atraumatic, PERRLA, EOMI, Mucous Memb Moist/[place], Other (o2 in place) Neck: Supple, No JVD Lungs: Other (crackles rt base) Heart: Regular Rate Abdomen: Normal Bowel Sounds, Soft, No Tenderness Extremities: Other (trace edema) Skin: Other (DANIELLE drain in place [place] dressing in place over lumbar spine) Neuro: Other (3/5 strength at hips 4-/5 at knees 4/5 at ankles Decreased sensation to touch at feet) Psych/Mental Status: Other (confused at times) Results Lab Laboratory Tests 10/24/16 05:24: Glucometer 122H 10/24/16 16:07: Glucometer 127H 10/24/16 20:11: Glucometer 146H 10/25/16 05:09: Glucometer 113H 10/25/16 11:08: Glucometer 174H 10/25/16 16:17: Glucometer 146H 10/25/16 21:09: Glucometer 124H 10/26/16 05:06: Glucometer 116H Assessment/Plan Assessment s/p Luimbar spine surgery for Spinal stenosis PVD with chronic anticoagulation HTN with episode of hypotension postop Postop nausea-resolved DM HLP CRI Resp insuff/ELOISA on supplemental 02 Dizziness improved with meclizine Plan Continue PT/OT/Pain management WEan from 02 as able F/U with Hospitalist service and orthospine prn Next Team Conference 10/28/16 Recheck labs -see orders SHONDA MCFADDEN MD Oct 26, 2016 19:44
[2016-10-26] MEDS: POLYETHYLENE GLYCOL 17 GM (MIRALAX) PACK PO SCH (20:17)
[2016-10-26] MEDS: FENOFIBRATE 134 MG (LOFIBRA) CAPSULE PO SCH (20:19)
[2016-10-26] MEDS: ATORVASTATIN 40 MG (LIPITOR) TABLET PO SCH (20:19)
[2016-10-26] MEDS: TRIAZOLAM 0.25 MG PO SCH (23:14)
[2016-10-27 05:49] VITALS: BP 147/73
[2016-10-27] MEDS: PIOGLITAZONE 30MG (ACTOS) TAB PO SCH (06:17)
[2016-10-27] MEDS: MULTIVIT W/MINERALS TAB (THERAGRAN M) PO SCH (06:17)
[2016-10-27] MEDS: PANTOPRAZOLE 40 MG (PROTONIX) TAB PO SCH (06:17)
[2016-10-27 06:18] LABS: BASOPHILS % (AUTO) 0 % (0-10); EOSINOPHILS # (AUTO) 0.3 10^3/uL (0.0-0.3); EOSINOPHILS % (AUTO) 3 % (0-10); LYMPHOCYTES # (AUTO) 1.1 X 10^3 (1.0-4.0); LYMPHOCYTES % (AUTO) 15 % (12-44); MEAN CORPUSCULAR HEMOGLOBIN 32 PG (25-34); MEAN CORPUSCULAR HGB CONC 32 G/DL (32-36); MEAN CORPUSCULAR VOLUME 101 FL (80-99); MEAN PLATELET VOLUME 9.5 FL (7.4-10.4); MONOCYTES # (AUTO) 0.8 X 10^3 (0.0-1.0); MONOCYTES % (AUTO) 11 % (0-12); NEUTROPHILS # (AUTO) 5.1 X 10^3 (1.8-7.8); NEUTROPHILS % (AUTO) 70 % (42-75); PLATELET COUNT 217 10^3/uL (130-400); RED BLOOD COUNT 3.14 10^6/uL (4.35-5.85); RED CELL DISTRIBUTION WIDTH 14.2 % (10.0-14.5); WHITE BLOOD COUNT 7.3 10^3/uL (4.3-11.0)
[2016-10-27 06:25] LABS: INR 1.1 (0.8-1.4); PROTHROMBIN TIME PATIENT 14.1 SEC (12.2-14.7)
[2016-10-27 06:38] LABS: ALBUMIN 3.4 G/DL (3.2-4.5); BILIRUBIN,TOTAL 0.7 MG/DL (0.1-1.0); CALCIUM 8.8 MG/DL (8.5-10.1); CREATININE SERUM 1.92 MG/DL (0.60-1.30); POTASSIUM 3.4 MMOL/L (3.6-5.0); TOTAL PROTEIN 6.1 G/DL (6.4-8.2)
[2016-10-27] MEDS: LACTULOSE SYRUP 10GM/15ML (ENULOSE) 30ML UDC PO SCH ×2 (08:17→20:52)
[2016-10-27] MEDS: CLOPIDOGREL 75 MG (PLAVIX) TABLET PO SCH (08:17)
[2016-10-27] MEDS: BACITRACIN OINTMENT 28 GM TUBE TOP SCH (08:17)
[2016-10-27] MEDS: DOCUSATE SODIUM 100 MG (COLACE) CAP PO SCH ×2 (08:17→20:52)
--- NOTE | 2016-10-27 09:01 | Physical Therapy Daily Note ---
PT Daily Note-Current Subjective Pt sitting in recliner upon arrival. Pt reports pain in low back but agrees to PT tx. Pain Numeric Pain Scale: 4 Location: Lower Location Body Site: Back Pain Description: Ache, Tightness Mental Status Patient Orientation: Person, Place, Situation Transfers Functional [place] Measure 0=Not Assessed/NA 4=Minimal Assistance 1=Total Assistance 5=Supervision or Setup 2=Maximal Assistance 6=Modified [place] 3=Moderate Assistance 7=Complete IndependenceIRFPAI Quality Coding Scale 6 Independent with activity with or without an assistive device 5 Patient requires set up or clean up by helper. Patient completes activity by themselves 4 Supervision or touching assist (CGA). [place] provide cues , steadying assist 3 The helper provides less than half the effort to complete the activity 2 The helper provides more than half the effort to complete the activity 1 Dependent. The helper does all the effort to complete an activity 7 Patient refused to complete or attempt activity 9 The patient did not perform the activity before the current illness or injury 88 Not attempted due to Medical conditions or safety concerns Scootin Sit to/from Stand: 5 Sit to Stand (QC): 5 Weight Bearing Weight Bearing Restriction: Full Weight Bearing Location Restriction: LE Bilateral Gait Training Does the Patient Walk?: Yes Distance (FIM): 3=150 ft Distance: 250' Walk 10 feet (QC): 5 Walk 50 ft with 2 Turns(QC): 5 Walk 150 ft (QC): 5 Gait Level of Assist: 5 Gait Persons Needed: 1 Gait Assistive Device: FWW Pt walks with slower scooby but steady and no LOB. Wheelchair Training Does the Pt Use a Wheelchair?: No Stair Training Stair Training: Handrails/: 2 handrails #of Steps: 16 1 Step (curb) (QC): 5 4 Steps (QC): 5 12 Steps (QC): 5 Stairs: Pattern: Step to Level of Assist: 5 Exercises Seated Therapy Exercises: Ankle pumps, Long arc quads, Hip flexion, Kicking activity Seated Reps: 15 Standing: Hip Abduction, Mini squats Standing Reps: 15 Treatments Pt reports pain and nurse gives morning meds. Pt inquires about discharging tomorrow. PT and pt discuss that will know more for discharge after weekly meeting tomorrow afternoon. Pt transfers from recliner using FWW at [facility]. Pt ambulates using FWW at SBA. Pt completes 4 sets of stairs as well as Seated Ex in chair followed by Standing EX at //bars. Pt returns to room to rest in recliner at end of tx with all needs met. Assessment Current Status: Good Progress Pt has made improvement with decrease in pain level, independence with mobility and transfers and no longer needs O2 during tx nor during day. PT Desktop Specialist Goals Jail Goals PT Jail Goals Time Frame: Nov 05, 2016 Transfers (B,C,W/C) (FIM): 6 Sit to Lying (QC): 6 Lying-Sitting on Side/Bed(QC): 6 Sit to Stand (QC): 6 Rollin Roll Left to Right (QC): 6 Chair/Bbm-cb-[place] Xfer(QC): 6 Car Transfer (QC): 6 Does the Patient Walk: Yes Gait (FIM): 6 Gait distance (FIM): 3=150 ft Walk 10 feet (QC): 6 Walk 10ft-Uneven Surface(QC): 6 Walk 50ft with 2 Turns (QC): 6 Walk 150 ft (QC): 6 Gait Level of Assist: 6 Gait Assistive Device: FWW Stairs (FIM): 5 (met 10/26/16) # of Steps: 12 (met 10/26/16) 1 Step (curb) (QC): 5 (met 10/26/16) 4 Steps (QC): 5 (met 10/26/16) 12 Steps (QC): 5 (met 10/26/16) Stairs Level Of Assist: 6 Picking up an Object (QC): 5 PT Plan Problem List Problem List: Activity Tolerance, Functional Strength, Balance, Gait Treatment/Plan Treatment Plan: Continue Plan of Care Treatment Plan: Bed Mobility, Education, Functional Activity Porsche, Functional Strength, Group Therapy, Gait, Safety, Therapeutic Exercise, Transfers Treatment Duration: Nov 05, 2016 Visits Per Week: 10-15 Minutes/Day (M-F): 60-90 Minutes/Day (Sat/Berrios): PRN Safety Risks/Education Patient Education: Gait Training, Transfer Techniques, Correct Positioning, Safety Issues Teaching Recipient: Patient Teaching Methods: Discussion Response to Teaching: Verbalize Understanding Time/GCodes Time In: 800 Time Out: 845 Total Billed Treatment Time: 45 Total Billed Treatment visit, GT (15m), EX (15m) & FA (15m) JAS VALE AUDIO VISUAL SPECIALIST Oct 27, 2016 09:01
--- NOTE | 2016-10-27 10:26 | Occupational Ther Daily Note ---
OT Current Status-Daily Note Subjective Pt seen in room, reporting that he hoped to be able to go home tomorrow. No pain mentioned. Appearance Alert, cooperative Mental Status/Objective Functional [place] Measure 0=Not Assessed/NA 4=Minimal Assistance 1=Total Assistance 5=Supervision or Setup 2=Maximal Assistance 6=Modified [place] 3=Moderate Assistance 7=Complete [place] ADL-Treatment Functional [place] Measure 0=Not Assessed/NA 4=Minimal Assistance 1=Total Assistance 5=Supervision or Setup 2=Maximal Assistance 6=Modified [place] 3=Moderate Assistance 7=Complete IndependenceIRFPAI Quality Coding Scale 6 Independent with activity with or without an assistive device 5 Patient requires set up or clean up by helper. Patient completes activity by themselves 4 Supervision or touching assist (CGA). [place] provide cues , steadying assist 3 The helper provides less than half the effort to complete the activity 2 The helper provides more than half the effort to complete the activity 1 Dependent. The helper does all the effort to complete an activity 7 Patient refused to complete or attempt activity 9 The patient did not perform the activity before the current illness or injury 88 Not attempted due to Medical conditions or safety concerns Eating (FIM): 6 (Pt reported no help needed to open packages and feed himself) Eating (QC): 6 Grooming (FIM): 5 (SBA at sink to wash hands after toileting. Also washed hands and face in shower with setup. Declined to shave. Reported he already brushed his teeth ) Oral Hygiene (QC): 4 (SBA) Bathing (FIM): 5 (Pt washed and dried all parts in shower, with setup. Shower chair, grab bars, hand held shower. long handled sponge.) Shower/Bathe Self (QC): 5 Upper Body (FIM): 5 (setup. no assist needed to doff and don t-shirt) Upper Body Dressing (QC): 5 Lower Body Dressing (FIM): 4 (A litle help needed to get slipper socks on L foot and get pants fixed when two feet going through same pants leg. pt educ use of sock aid. Did not use other devices such as dressing stick or pumping station supervisor but stood with FWW. A little impulsive) Lower Body Dressing (QC): 3 On/Off Footwear (QC): 4 Toileting (FIM): 5 (Managed clothing and hygiene. Tall toilet, grab bar, FWW) Toileting Hygiene (QC): 5 Toilet/Commode Transfer (FIM): 5 (SBA, tall toilet, grab bar, FWW) Toilet Transfer (QC): 4 (SBA) Shower Transfer(FIM): 5 (SBA, shower chair, grab bar) Pt needed frequent brief recovery periods due to SOB. Pt was fatigued and requested to lie down after ADLs. Pt left up in bed, all needs met. Education OT Patient Education: Modified ADL techniques, Progress toward Goal/Update tx plan, Safety issues, Use of adapted equipment Teaching Recipient: Patient Teaching Methods: Demonstration, Discussion Response to Teaching: Verbalize Understanding, Return Demonstration, Reinforcement Needed OT Short Term Goals Short Term Goals Time Frame: Oct 22, 2016 1=Demonstrate adherence to instructed precautions during ADL tasks. 2=Patient will verbalize/demonstrate understanding of assistive devices/ modifications for ADL. 3=Patient will improve strength/tolerance for activity to enable patient to perform ADL's. OT Senior Living Goals Document Preparer Microfilming Goals Time Frame: Nov 05, 2016 Eating (FIM): 6 Eating (QC): 6 Groomin Oral Hygiene (QC): 6 Bathing(FIM): 5 Shower/Bathe Self (QC): 5 Upper Body Dressing(FIM): 6 Upper Body Dressing (QC): 6 Lower Body Dressing(FIM): 6 Lower Body Dressing (QC): 6 On/Off Footwear (QC): 6 Toileting(FIM): 6 Toileting Hygiene (QC): 6 Transfers (B,C,W/C) (FIM): 6 Toilet/Commode Transfer(FIM): 6 Toilet/Commode Transfer (QC): 6 Shower Transfer(FIM): 5 Comprehension(FIM): 3 (MET) Expression (FIM): 4 (MET) Social Interaction(FIM): 3 (MET) Problem Solving(FIM): 3 (MET) Memory(FIM): 3 (MET) Additional Goals: 1-Demonstrate ADL Tasks, 2-Verbalize Understanding, 3- ImproveStrength/[place]orsche 1=Demonstrate adherence to instructed precautions during ADL tasks. 2=Patient will verbalize/demonstrate understanding of assistive devices/ modifications for ADL. 3=Patient will improve strength/tolerance for activity to enable patient to perform ADL's. OT Education/Plan Discharge Recommendations Plan/Recommendations: Continue POC Treatment Plan/Plan of Care Patient would benefit from OT for education, treatment and training to promote independence in ADL's, mobility, safety and/or upper extremity function for ADL' s. Plan of Care: ADL Retraining, Functional Mobility, Group Exercise/Act as Ind, UE Funct Exercise/Act Treatment Duration: Nov 05, 2016 Visits Per Week: 10-12 Minutes/Day (M-F): 60-90 Minutes/Day (Sat/Berrios): prn Rehab Potential: Good Time/GCodes Start Time: 09:30 Stop Time: 10:15 Total Time Billed (hr/min): 45 Billed Treatment Time visit, 45 minutes ADL YVETTE ZUNIGA OT Oct 27, 2016 10:26
[2016-10-27] MEDS: ACETAMINOPHEN 325 MG TABLET/CAPLET (TYLENOL) PO PRN ×2 (11:52→19:55)
--- NOTE | 2016-10-27 13:13 | PM & R (SOAP) Progress Note ---
Subjective Time Seen by Provider: 07:50 Subjective/Events-last exam Patient was seen in common area of IRU this AM Off 02 and feeling much better Meclizine d/cd and no longer nauseated or dizzy. Patient SBA for transfer and gait with walker Labs noted INR SUBtherapeutic Coumadin dose increased Patient Hypokalemia mild repeat labs ordered for tomorrow Postop anemia improving. Objective Exam Last Set of Vital Signs Vital Signs Date Time Temp Pulse Resp B/P (MAP) Pulse Ox O2 Delivery O2 Flow Rate FiO2 10/27/16 08:15 94 Room Air 10/27/16 05:49 98.9 84 20 147/73 10/26/16 20:20 3.00 Capillary Refill : I&O Intake and Output 10/27/16 00:00 Intake Total 1100 ml Balance 1100 ml Intake Oral 1100 ml # Voids 7 # Bowel Movements 2 General: Other (confused at times mentation slowed) HEENT: Atraumatic, PERRLA, EOMI, Mucous Memb Moist/[place], Other (o2 in place) Neck: Supple, No JVD Lungs: Other (crackles rt base) Heart: Regular Rate Abdomen: Normal Bowel Sounds, Soft, No Tenderness Extremities: Other (trace edema) Skin: Other (DANIELLE drain in place [place] dressing in place over lumbar spine) Neuro: Other (3/5 strength at hips 4-/5 at knees 4/5 at ankles Decreased sensation to touch at feet) Psych/Mental Status: Other (confused at times) Results Lab Laboratory Tests 10/24/16 16:07: Glucometer 127H 10/24/16 20:11: Glucometer 146H 10/25/16 05:09: Glucometer 113H 10/25/16 11:08: Glucometer 174H 10/25/16 16:17: Glucometer 146H 10/25/16 21:09: Glucometer 124H 10/26/16 05:06: Glucometer 116H 10/27/16 06:10: White Blood Count 7.3, Red Blood Count 3.14L, Hemoglobin 10.0L, Hematocrit 32L, Mean Corpuscular Volume 101H, Mean Corpuscular Hemoglobin 32, Mean Corpuscular Hemoglobin Concent 32, Red Cell Distribution Width 14.2, Platelet Count 217, Mean Platelet Volume 9.5, Neutrophils (%) (Auto) 70, Lymphocytes (%) (Auto) 15, Monocytes (%) (Auto) 11, Eosinophils (%) (Auto) 3, Basophils (%) (Auto) 0, Neutrophils # (Auto) 5.1, Lymphocytes # (Auto) 1.1, Monocytes # (Auto) 0.8, Eosinophils # (Auto) 0.3, Basophils # (Auto) 0.0, Prothrombin Time 14.1, INR Comment 1.1, Sodium Level 139, Potassium Level 3.4L, Chloride Level 103, Carbon Dioxide Level 25, Anion Gap 11, Blood Urea Nitrogen 28H, Creatinine 1.92H, Estimat Glomerular Filtration Rate 34, BUN/Creatinine Ratio 15, Glucose Level 110H, Calcium Level 8.8, Total Bilirubin 0.7, Aspartate Amino Transf (AST/SGOT) 20, Alanine Aminotransferase (ALT/SGPT) 16, Alkaline Phosphatase 61, Total Protein 6.1L, Albumin 3.4 10/27/16 06:16: Glucometer 114H Assessment/Plan Assessment s/p Luimbar spine surgery for Spinal stenosis PVD with chronic anticoagulation-currently sub- therapeutic HTN with episode of hypotension postop Postop nausea-resolved DM HLP CRI Resp insuff/ELOISA weaned from supplemental 02 Dizziness resolved Mild hyponatremia Plan Continue PT/OT/Pain management Coumadin increased in dosage F/U with Hospitalist service and orthospine prn Next Team Conference tomorrow 10/28/16 Recheck labs See orders SHONDA MCFADDEN MD Oct 27, 2016 13:13
--- NOTE | 2016-10-27 14:01 | Physical Therapy Daily Note ---
PT Daily Note-Current Subjective Patient is agreeable to participate with PT. Pain Numeric Pain Scale: 5-Moderate Pain Location: Lower Location Body Site: Back Pain Description: Ache Mental Status Patient Orientation: Normal For Age Transfers Functional [place] Measure 0=Not Assessed/NA 4=Minimal Assistance 1=Total Assistance 5=Supervision or Setup 2=Maximal Assistance 6=Modified [place] 3=Moderate Assistance 7=Complete IndependenceIRFPAI Quality Coding Scale 6 Independent with activity with or without an assistive device 5 Patient requires set up or clean up by helper. Patient completes activity by themselves 4 Supervision or touching assist (CGA). [place] provide cues , steadying assist 3 The helper provides less than half the effort to complete the activity 2 The helper provides more than half the effort to complete the activity 1 Dependent. The helper does all the effort to complete an activity 7 Patient refused to complete or attempt activity 9 The patient did not perform the activity before the current illness or injury 88 Not attempted due to Medical conditions or safety concerns Transfers (B, C, W/C) (FIM): 6 Scootin Rollin Roll Left to Right (QC): 5 Supine to/from Sit: 6 Sit to/from Stand: 6 Sit to Lying (QC): 5 Sit to Stand (QC): 5 Chair/Bjs-hy-Klyjf Xfer(QC): 5 Bed to/from Chair: 5 Gait Training Does the Patient Walk?: Yes Gait (FIM): 6 Distance (FIM): 3=150 ft Distance: 1500' Walk 10 feet (QC): 5 Walk 50 ft with 2 Turns(QC): 5 Walk 150 ft (QC): 5 Walking 10ft/uneven surface-QC: 5 Gait Level of Assist: 6 Gait Assistive Device: FWW Gait training on all terrains inside and outside on grass and concrete, curb and elevations with FWW and modified independent. Assessment PT address functional mobility with gait training on all terrains inside and outside to ensure safe return to home and to resume function at home with spouse. Patient desires to return to home this week. PT Shelter Goals Blue Line Trimmer Goals PT Shelter Goals Time Frame: Nov 05, 2016 Transfers (B,C,W/C) (FIM): 6 Sit to Lying (QC): 6 Lying-Sitting on Side/Bed(QC): 6 Sit to Stand (QC): 6 Rollin Roll Left to Right (QC): 6 Chair/Tei-rn-Hkwjh Xfer(QC): 6 Car Transfer (QC): 6 Does the Patient Walk: Yes Gait (FIM): 6 Gait distance (FIM): 3=150 ft Walk 10 feet (QC): 6 Walk 10ft-Uneven Surface(QC): 6 Walk 50ft with 2 Turns (QC): 6 Walk 150 ft (QC): 6 Gait Level of Assist: 6 Gait Assistive Device: FWW Stairs (FIM): 5 (met 10/26/16) # of Steps: 12 (met 10/26/16) 1 Step (curb) (QC): 5 (met 10/26/16) 4 Steps (QC): 5 (met 10/26/16) 12 Steps (QC): 5 (met 10/26/16) Stairs Level Of Assist: 6 Picking up an Object (QC): 5 PT Plan Treatment/Plan Treatment Plan: Continue Plan of Care Treatment Plan: Bed Mobility, Education, Functional Activity Porsche, Functional Strength, Group Therapy, Gait, Safety, Therapeutic Exercise, Transfers Treatment Duration: Nov 05, 2016 Visits Per Week: 10-15 Minutes/Day (M-F): 60-90 Minutes/Day (Sat/Berrios): PRN Time/GCodes Time In: 1300 Time Out: 1330 Total Billed Treatment Time: 30 Total Billed Treatment 1 visit GT x 2 30 min MICHEL LAGUNA PT Oct 27, 2016 14:01
--- NOTE | 2016-10-27 15:22 | Occupational Ther Daily Note ---
OT Current Status-Daily Note Subjective Pt seen in [facility], agreeable to OT. No pain mentioned except during discussions with exercise Appearance Alert, cooperative Mental Status/Objective Functional [place] Measure 0=Not Assessed/NA 4=Minimal Assistance 1=Total Assistance 5=Supervision or Setup 2=Maximal Assistance 6=Modified [place] 3=Moderate Assistance 7=Complete [place] ADL-Treatment Functional [place] Measure 0=Not Assessed/NA 4=Minimal Assistance 1=Total Assistance 5=Supervision or Setup 2=Maximal Assistance 6=Modified [place] 3=Moderate Assistance 7=Complete IndependenceIRFPAI Quality Coding Scale 6 Independent with activity with or without an assistive device 5 Patient requires set up or clean up by helper. Patient completes activity by themselves 4 Supervision or touching assist (CGA). [place] provide cues , steadying assist 3 The helper provides less than half the effort to complete the activity 2 The helper provides more than half the effort to complete the activity 1 Dependent. The helper does all the effort to complete an activity 7 Patient refused to complete or attempt activity 9 The patient did not perform the activity before the current illness or injury 88 Not attempted due to Medical conditions or safety concerns Other Treatment Pt walked to gym with FWW with SBA for safety. Transferred to chair with arms with SBA. Pt did 15 minutes bilat UE exercise with arm bike sest at 15W resistance, with one brief recovery period. pt also did bilat UE ex with 2# weight x 10 reps (only 6 reps shoulder flex), working on shoulders, elbows, forearms and wrists. Reaching overhead with weight caused back discomfort so that exercise stopped. Pt did 10 reps shoulder, elbow and wrist ex with 1.5# exercise bar. All exercises to increase UE strength to help with transfers. Pt struggled a little at midpoint sit to stand, using chair with arms. Pt walked back to [facility] and left in the care of his . Education OT Patient Education: Exercise program, Purpose of tx/functional activities Teaching Recipient: Patient Teaching Methods: Demonstration Response to Teaching: Return Demonstration OT Short Term Goals Short Term Goals Time Frame: Oct 22, 2016 1=Demonstrate adherence to instructed precautions during ADL tasks. 2=Patient will verbalize/demonstrate understanding of assistive devices/ modifications for ADL. 3=Patient will improve strength/tolerance for activity to enable patient to perform ADL's. OT Senior Software Development Engineer Goals Retirement Goals Time Frame: Nov 05, 2016 Eating (FIM): 6 Eating (QC): 6 Groomin Oral Hygiene (QC): 6 Bathing(FIM): 5 Shower/Bathe Self (QC): 5 Upper Body Dressing(FIM): 6 Upper Body Dressing (QC): 6 Lower Body Dressing(FIM): 6 Lower Body Dressing (QC): 6 On/Off Footwear (QC): 6 Toileting(FIM): 6 Toileting Hygiene (QC): 6 Transfers (B,C,W/C) (FIM): 6 Toilet/Commode Transfer(FIM): 6 Toilet/Commode Transfer (QC): 6 Shower Transfer(FIM): 5 Comprehension(FIM): 3 (MET) Expression (FIM): 4 (MET) Social Interaction(FIM): 3 (MET) Problem Solving(FIM): 3 (MET) Memory(FIM): 3 (MET) Additional Goals: 1-Demonstrate ADL Tasks, 2-Verbalize Understanding, 3- ImproveStrength/Porsche 1=Demonstrate adherence to instructed precautions during ADL tasks. 2=Patient will verbalize/demonstrate understanding of assistive devices/ modifications for ADL. 3=Patient will improve strength/tolerance for activity to enable patient to perform ADL's. OT Education/Plan Discharge Recommendations Plan/Recommendations: Continue POC Treatment Plan/Plan of Care Patient would benefit from OT for education, treatment and training to promote independence in ADL's, mobility, safety and/or upper extremity function for ADL' s. Plan of Care: ADL Retraining, Functional Mobility, Group Exercise/Act as Ind, UE Funct Exercise/Act Treatment Duration: Nov 05, 2016 Visits Per Week: 10-12 Minutes/Day (M-F): 60-90 Minutes/Day (Sat/Berrios): prn Rehab Potential: Good Time/GCodes Start Time: 13:30 Stop Time: 14:15 Total Time Billed (hr/min): 45 Billed Treatment Time visit, 45 minutes exercise YVETTE ZUNIGA OT Oct 27, 2016 15:22
[2016-10-27] MEDS ORDERED: warFARin 7.5 MG (COUMADIN) TAB PO SCH (18:00)
[2016-10-27 18:09] VITALS: BP 145/76
[2016-10-27] MEDS: ATORVASTATIN 40 MG (LIPITOR) TABLET PO SCH (19:55)
[2016-10-27] MEDS: FENOFIBRATE 134 MG (LOFIBRA) CAPSULE PO SCH (19:55)
[2016-10-27] MEDS: POLYETHYLENE GLYCOL 17 GM (MIRALAX) PACK PO SCH (20:53)
[2016-10-27] MEDS: TRIAZOLAM 0.25 MG PO SCH (23:07)
[2016-10-28 04:51] VITALS: BP 159/78
[2016-10-28] MEDS: PIOGLITAZONE 30MG (ACTOS) TAB PO SCH (06:16)
[2016-10-28] MEDS: MULTIVIT W/MINERALS TAB (THERAGRAN M) PO SCH (06:16)
[2016-10-28] MEDS: PANTOPRAZOLE 40 MG (PROTONIX) TAB PO SCH (06:16)
[2016-10-28] MEDS: CLOPIDOGREL 75 MG (PLAVIX) TABLET PO SCH (08:21)
[2016-10-28] MEDS: LACTULOSE SYRUP 10GM/15ML (ENULOSE) 30ML UDC PO SCH (08:22)
[2016-10-28] MEDS: DOCUSATE SODIUM 100 MG (COLACE) CAP PO SCH (08:22)
--- NOTE | 2016-10-28 09:08 | Physical Therapy Daily Note ---
PT Daily Note-Current Subjective Pt. states he is very ready to go home and wants to go today Pain Numeric Pain Scale: 3 Location: Medial Location Body Site: Back Pain Description: Ache Appearance more alert and awake Mental Status Patient Orientation: Normal For Age Transfers Functional [place] Measure 0=Not Assessed/NA 4=Minimal Assistance 1=Total Assistance 5=Supervision or Setup 2=Maximal Assistance 6=Modified [place] 3=Moderate Assistance 7=Complete IndependenceIRFPAI Quality Coding Scale 6 Independent with activity with or without an assistive device 5 Patient requires set up or clean up by helper. Patient completes activity by themselves 4 Supervision or touching assist (CGA). [place] provide cues , steadying assist 3 The helper provides less than half the effort to complete the activity 2 The helper provides more than half the effort to complete the activity 1 Dependent. The helper does all the effort to complete an activity 7 Patient refused to complete or attempt activity 9 The patient did not perform the activity before the current illness or injury 88 Not attempted due to Medical conditions or safety concerns Transfers (B, C, W/C) (FIM): 6 Scootin Rollin Roll Left to Right (QC): 6 Supine to/from Sit: 6 Sit to/from Stand: 6 Sit to Lying (QC): 6 Sit to Stand (QC): 6 Chair/Haw-gb-Ukvrf Xfer(QC): 6 Bed to/from Chair: 6 Gait Training Does the Patient Walk?: Yes Gait (FIM): 6 Distance (FIM): 3=150 ft (350,300) Walk 10 feet (QC): 6 Walk 50 ft with 2 Turns(QC): 6 Walk 150 ft (QC): 6 Walking 10ft/uneven surface-QC: 6 Gait Level of Assist: 6 Gait Persons Needed: 0 Gait Assistive Device: FWW up ad paramjit Wheelchair Training Does the Pt Use a Wheelchair?: No Stair Training Stair Training: Handrails/: 2 handrails Stairs (FIM): 6 #of Steps: 16 1 Step (curb) (QC): 6 4 Steps (QC): 6 12 Steps (QC): 6 Stairs: Pattern: Step to Level of Assist: 6 has 16 steps at home to get up to 2nd floor to bed Exercises Supine Ex: Ankle pumps, Quad Set, Rolling, Glut sets, Heel Slides, Short Arc Quads, Scooting, Hip abd/add Supine Reps: 10 Standing: Hip Abduction, Heel/toe raises, Mini squats, Sit to Stand Standing Reps: 12 Assessment Current Status: Excellent Progress much improved, cognitively improved, will have2 FWWs at home, one upstairs and one down PT Logging Shovel Operator Goals Longterm Goals PT Logging Shovel Operator Goals Time Frame: Nov 05, 2016 Transfers (B,C,W/C) (FIM): 6 Sit to Lying (QC): 6 Lying-Sitting on Side/Bed(QC): 6 Sit to Stand (QC): 6 Rollin Roll Left to Right (QC): 6 Chair/Xgd-ub-Qbjdz Xfer(QC): 6 Car Transfer (QC): 6 Does the Patient Walk: Yes Gait (FIM): 6 Gait distance (FIM): 3=150 ft Walk 10 feet (QC): 6 Walk 10ft-Uneven Surface(QC): 6 Walk 50ft with 2 Turns (QC): 6 Walk 150 ft (QC): 6 Gait Level of Assist: 6 Gait Assistive Device: FWW Stairs (FIM): 5 (met 10/26/16) # of Steps: 12 (met 10/26/16) 1 Step (curb) (QC): 5 (met 10/26/16) 4 Steps (QC): 5 (met 10/26/16) 12 Steps (QC): 5 (met 10/26/16) Stairs Level Of Assist: 6 Picking up an Object (QC): 5 PT Plan Treatment/Plan Treatment Plan: Continue Plan of Care Treatment Plan: Bed Mobility, Education, Functional Activity Porsche, Functional Strength, Group Therapy, Gait, Safety, Therapeutic Exercise, Transfers Treatment Duration: Nov 05, 2016 Visits Per Week: 10-15 Minutes/Day (M-F): 60-90 Minutes/Day (Sat/Berrios): PRN Safety Risks/Education Patient Education: Gait Training, Transfer Techniques, Steps Teaching Recipient: Patient Teaching Methods: Demonstration, Discussion Response to Teaching: Verbalize Understanding, Return Demonstration, Reinforcement Needed Time/GCodes Time In: 800 Time Out: 900 Total Billed Treatment Time: 60 Total Billed Treatment 1,EX30m,GT15m,FA15m G Codes Necessary: JOSE DAVID Do PTA Oct 28, 2016 09:08
[2016-10-28] MEDS: BACITRACIN OINTMENT 28 GM TUBE TOP SCH (10:18)
[2016-10-28 10:27] LABS: INR 1.2 (0.8-1.4); PROTHROMBIN TIME PATIENT 14.9 SEC (12.2-14.7)
--- NOTE | 2016-10-28 10:43 | Progress Note-Hospitalist ---
Progress Note Progress Notes/Assess & Plan Date Seen 10/28/16 Time Seen by Provider: 10:00 Diagonsis/Assessment & Plan structurer: Pt was in a shower 1000 Pt would like to DC today Patient Interview: Pt would like to DC today Pt states that he has not been experiencing nausea and he has been eating and drinking well Pt has been producing soft BMs Pt rates his pain at a 3 or 4 PT is working with pt and he is doing well with this Chart Review: No fever Vitals stable except BP 178/81 Hgb 9.8 Creat 1.66 Sugars are adequate structurer: Pt is having a lot of pain. Pt had about 30 min of sleep last night Pt takes Triazolam at home for sleep Pt is cold all the time, but he is afebrile Pt presents with early signs of dementia in this examiner's opinion Patient Interview: Pt's was advised to bring Triazolam to the pt; she will return home to retrieve this. A substitute will be provided until then. Pt has had 2 BMs since yesterday Pt has not been eating or sleeping and has been nauseous. Pt's family was reassured that his surgery went very well, but his recovery time may take a while. Pt's is happy with the way his surgery went, but is frustrated with the long recovery time and his lack of sleep. Physical exam stable. Lungs sound perfect. AFVSS, Fatigued but not will and O x 3, family at bedside RRR, CTAB no rales noted No edema INR 1.2 Assessment: s/p uncomplicated L3-5 Laminectomy and L3-5 Instrumention with removal of L5 instrumentation and reinsertion of fixation with autograft and allograft Delirium with N/V and oversedation with mild hypoxia due to morphine and changed to Dilaudid due to renal insufficiency but then had side effects and changed to Fentanyl then had issues with Phenergan and continues to have issues even with low dose Hydrocodone so adding Ultram to the Tylenol with complete resolution CRI HTN HLP PVD severe DM Presumed ELOISA Tremors due to weakness and narcotics now resolved Post op constipation now resolved Chronic insomnia Plan: Ultram/Tramadol for pain 50 TID Retrieve Triazolam from home and restart for improvement of insomnia I tried my best to reassure the family and the patient and had conferred with Dr. Villanueva regarding the delirium and the vascular dementia component that is an undercurrent of the whole issue and renal insufficiency and sensitivity to pain medication and tried to answer all their questions and reassured but very difficult situation at this time Check labs in am or Wednesday Continue Tramadol Check PT-INR today instead of Wednesday Scribed by Argenis Dodson under the direct supervision of Dr. Poole. JARETH POOLE DO Oct 28, 2016 10:43
--- NOTE | 2016-10-28 11:25 | Occupational Ther Daily Note ---
OT Current Status-Daily Note Subjective Pt seen in room, agreeable to OT. No pain mentioned. Pt still requesting to be discharged to home today Appearance Alert, cooperative. Pt was found standing at the window, with his walker in the bathroom. He did not realize that he didn't have his walker with him. Mental Status/Objective Functional [place] Measure 0=Not Assessed/NA 4=Minimal Assistance 1=Total Assistance 5=Supervision or Setup 2=Maximal Assistance 6=Modified [place] 3=Moderate Assistance 7=Complete [place] ADL-Treatment SCD equipment removed from end of bed because pt is up ad paramjit in room per PT and might catch walker or his feet in tubing on device. Pt agreeable to ADLs. Functional [place] Measure 0=Not Assessed/NA 4=Minimal Assistance 1=Total Assistance 5=Supervision or Setup 2=Maximal Assistance 6=Modified [place] 3=Moderate Assistance 7=Complete IndependenceIRFPAI Quality Coding Scale 6 Independent with activity with or without an assistive device 5 Patient requires set up or clean up by helper. Patient completes activity by themselves 4 Supervision or touching assist (CGA). [place] provide cues , steadying assist 3 The helper provides less than half the effort to complete the activity 2 The helper provides more than half the effort to complete the activity 1 Dependent. The helper does all the effort to complete an activity 7 Patient refused to complete or attempt activity 9 The patient did not perform the activity before the current illness or injury 88 Not attempted due to Medical conditions or safety concerns Eating (FIM): 6 (Pt reported no help needed to open packages and feed himself) Eating (QC): 6 Grooming (FIM): 6 (Pt was able to brush teeth while standing at sink, FWW. Washed face and hands in shower. Chooses not to shave. Little hair to comb. Pt educ on keeping walker in front of him while standing at sink.) Oral Hygiene (QC): 6 Bathing (FIM): 5 (Pt washed and dried all parts in shower (except back), turning water on and off and retrieving towel from bar. Shower chair, grab bars , hand held shower, long handled sponge. Pt started drying off before he turned water off - supervision recommended. ) Shower/Bathe Self (QC): 4 (supervision) Upper Body (FIM): 6 (Retrieved clean clothes from closet and put dirty ones away. Donned shirt without assistance) Upper Body Dressing (QC): 6 Lower Body Dressing (FIM): 6 (retrieved clean clothes from closet and put dirty ones away (pt education on using walker for transporting clothing). Doffed and donned shorts and underwear without assistance and with sitting to dress lower body without cues. FWW. Able to get slip on shoes without help. Able to get shoes and socks off.) Lower Body Dressing (QC): 6 On/Off Footwear (QC): 6 Toileting (FIM): 6 (Managed clothing and hygiene. Tall toilet, grab bar, FWW. Pt has toilet tongs but dos not use them at this time. ) Toileting Hygiene (QC): 6 Toilet/Commode Transfer (FIM): 6 (Mod I getting on and off tall toilet, grab bar, FWW) Toilet Transfer (QC): 6 Shower Transfer(FIM): 6 (Mod I getting off and on shower chair, grab bar. Mild safety concerns) Pt left up in recliner, all needs met. Dry dressings on back from nursing. Education OT Patient Education: Modified ADL techniques, Progress toward Goal/Update tx plan, Purpose of tx/functional activities, Safety issues Teaching Recipient: Patient Teaching Methods: Demonstration, Discussion Response to Teaching: Verbalize Understanding, Return Demonstration OT Short Term Goals Short Term Goals Time Frame: Oct 22, 2016 1=Demonstrate adherence to instructed precautions during ADL tasks. 2=Patient will verbalize/demonstrate understanding of assistive devices/ modifications for ADL. 3=Patient will improve strength/tolerance for activity to enable patient to perform ADL's. OT Data Support Analyst Goals Shelter Goals Time Frame: Nov 05, 2016 Eating (FIM): 6 (met --) Eating (QC): 6 (met --17) Groomin (met 10-28-17) Oral Hygiene (QC): 6 (met --) Bathing(FIM): 5 (met --) Shower/Bathe Self (QC): 5 (not met. Supervision (4)) Upper Body Dressing(FIM): 6 (met --17) Upper Body Dressing (QC): 6 (met --17) Lower Body Dressing(FIM): 6 (met --17) Lower Body Dressing (QC): 6 (met 10-28-16) On/Off Footwear (QC): 6 (met 10-28-16) Toileting(FIM): 6 (met 10-28-16) Toileting Hygiene (QC): 6 (met 10-28-16) Transfers (B,C,W/C) (FIM): 6 Toilet/Commode Transfer(FIM): 6 (met 10-28-16) Toilet/Commode Transfer (QC): 6 (met 10-28-16) Shower Transfer(FIM): 5 (met 10-28-16) Comprehension(FIM): 3 (MET) Expression (FIM): 4 (MET) Social Interaction(FIM): 3 (MET) Problem Solving(FIM): 3 (MET) Memory(FIM): 3 (MET) Additional Goals: 1-Demonstrate ADL Tasks, 2-Verbalize Understanding, 3- ImproveStrength/Porsche 1=Demonstrate adherence to instructed precautions during ADL tasks. 2=Patient will verbalize/demonstrate understanding of assistive devices/ modifications for ADL. 3=Patient will improve strength/tolerance for activity to enable patient to perform ADL's. OT Education/Plan Discharge Recommendations Plan/Recommendations: Continue POC (hopes to be discharged today) Treatment Plan/Plan of Care Patient would benefit from OT for education, treatment and training to promote independence in ADL's, mobility, safety and/or upper extremity function for ADL' s. Plan of Care: ADL Retraining, Functional Mobility, Group Exercise/Act as Ind, UE Funct Exercise/Act Treatment Duration: Nov 05, 2016 Visits Per Week: 10-12 Minutes/Day (M-F): 60-90 Minutes/Day (Sat/Berrios): prn Rehab Potential: Good Time/GCodes Start Time: 09:30 Stop Time: 10:30 Total Time Billed (hr/min): 60 Billed Treatment Time visit, 60 minutes ADL YVETTE ZUNIGA OT Oct 28, 2016 11:25
[2016-10-28] MEDS ORDERED: WARF7.5T PO (13:19)
--- NOTE | 2016-10-28 13:56 | PM & R (SOAP) Progress Note ---
Subjective Time Seen by Provider: 13:45 Subjective/Events-last exam Patient was seen in his room now and this AM TEam Conference held just earlier today Patient and spouse ready for discharge Patient will have f/u with PCP DR [facility] [place] [facility] Objective Exam Last Set of Vital Signs Vital Signs Date Time Temp Pulse Resp B/P (MAP) Pulse Ox O2 Delivery O2 Flow Rate FiO2 10/28/16 09:00 Nasal Cannula 10/28/16 04:51 99.1 80 20 159/78 96 10/26/16 20:20 Capillary Refill : I&O Intake and Output 10/28/16 00:00 Intake Total 1690 ml Balance 1690 ml Intake Oral 1690 ml # Voids 7 # Bowel Movements 3 General: Other (confused at times mentation slowed) HEENT: Atraumatic, PERRLA, EOMI, Mucous Memb Moist/[place], Other (o2 in place) Neck: Supple, No JVD Lungs: Other (crackles rt base) Heart: Regular Rate Abdomen: Normal Bowel Sounds, Soft, No Tenderness Extremities: Other (trace edema) Skin: Other (kayy drain out and midline out and incision covered with Dry island dressing) Neuro: Other (3/5 strength at hips 4-/5 at knees 4/5 at ankles Decreased sensation to touch at feet) Psych/Mental Status: Other (confused at times) Results Lab Laboratory Tests 10/25/16 16:17: Glucometer 146H 10/25/16 21:09: Glucometer 124H 10/26/16 05:06: Glucometer 116H 10/27/16 06:10: White Blood Count 7.3, Red Blood Count 3.14L, Hemoglobin 10.0L, Hematocrit 32L, Mean Corpuscular Volume 101H, Mean Corpuscular Hemoglobin 32, Mean Corpuscular Hemoglobin Concent 32, Red Cell Distribution Width 14.2, Platelet Count 217, Mean Platelet Volume 9.5, Neutrophils (%) (Auto) 70, Lymphocytes (%) (Auto) 15, Monocytes (%) (Auto) 11, Eosinophils (%) (Auto) 3, Basophils (%) (Auto) 0, Neutrophils # (Auto) 5.1, Lymphocytes # (Auto) 1.1, Monocytes # (Auto) 0.8, Eosinophils # (Auto) 0.3, Basophils # (Auto) 0.0, Prothrombin Time 14.1, INR Comment 1.1, Sodium Level 139, Potassium Level 3.4L, Chloride Level 103, Carbon Dioxide Level 25, Anion Gap 11, Blood Urea Nitrogen 28H, Creatinine 1.92H, Estimat Glomerular Filtration Rate 34, BUN/Creatinine Ratio 15, Glucose Level 110H, Calcium Level 8.8, Total Bilirubin 0.7, Aspartate Amino Transf (AST/SGOT) 20, Alanine Aminotransferase (ALT/SGPT) 16, Alkaline Phosphatase 61, Total Protein 6.1L, Albumin 3.4 10/27/16 06:16: Glucometer 114H 10/28/16 05:00: Glucometer 126H 10/28/16 10:09: Prothrombin Time 14.9H, INR Comment 1.2 Assessment/Plan Assessment s/p Luimbar spine surgery for Spinal stenosis PVD with chronic anticoagulation-currently sub- therapeutic HTN with episode of hypotension postop Postop nausea-resolved DM HLP CRI Resp insuff/ELOISA weaned from supplemental 02 Dizziness resolved Mild hyponatremia Plan Discharge today to home with spouse and HHC F/U with ortho spine and PCP as per above F/U INR with report to DR Burgess tomorrow. See orders. SHONDA MCFADDEN MD Oct 28, 2016 13:55
[2016-10-28 15:15] VITALS: BP 159/78
--- NOTE | 2016-10-28 15:40 | Therapy Team Discharge Summary ---
Therapy Discharge Summary Discharge Recommendations Date of Discharge Therapy D/C Recommendations: Home w/ Family Support, Occupational Therapy Home Care Occupational Therapy Pt seen for skilled OT after back surgery to increase his independence in basic self care and allow him to return home safely to live with his . On admission pt needed setup for eating; supervision for grooming and upper body dressing; min assist with toileting and shower/toilet transfers; mod assist with bathing and lower body dressing. By discharge he had increased to mod I with eating, grooming, dressing, transfers, toileting and supervision for bathing. Equipment used included shower chair, grab bars, tall toilet, FWW, sock aide, toilet aide, long handled sponge, dressing stick, electrical discharge machine operator. Home health OT is recommended. See tx plan for goals met. DC OT PT Long-Term Goals Patrol Judge Goals PT Long-Term Goals Time Frame: Nov 05, 2016 Transfers (B,C,W/C) (FIM): 6 Roll Left to Right (QC): 6 Sit to Lying (QC): 6 Lying-Sitting on Side/Bed(QC): 6 Sit to Stand (QC): 6 Chair/Loz-iy-Cdaco Xfer(QC): 6 Car Transfer (QC): 6 Does the Patient Walk: Yes Gait (FIM): 6 Gait distance (FIM): 3=150 ft Walk 10 feet (QC): 6 Walk 10ft-Uneven Surface(QC): 6 Walk 50ft with 2 Turns (QC): 6 Walk 150 ft (QC): 6 Gait Level of Assist: 6 Gait Assistive Device: FWW Stairs (FIM): 5 (met 10/26/16) # of Steps: 12 (met 10/26/16) 1 Step (curb) (QC): 5 (met 10/26/16) 4 Steps (QC): 5 (met 10/26/16) 12 Steps (QC): 5 (met 10/26/16) Stairs Level Of Assist: 6 Picking up an Object (QC): 5 OT Patrol Judge Goals Long-Term Goals Time Frame: Nov 05, 2016 Eating (FIM): 6 (met 10-28-16) Eating (QC): 6 (met 10-28-16) Oral Hygiene (QC): 6 (met 10-28-16) Grooming(FIM): 6 (met 10-28-16) Bathing(FIM): 5 (met 10-28-16) Shower/Bathe Self (QC): 5 (not met. Supervision (4)) Upper Body Dressing(FIM): 6 (met 10-28-16) Upper Body Dressing (QC): 6 (met 10-28-16) Lower Body Dressing(FIM): 6 (met 10-28-16) Lower Body Dressing (QC): 6 (met 10-28-16) On/Off Footwear (QC): 6 (met 10-28-16) Toileting(FIM): 6 (met 10-28-16) Toileting Hygiene (QC): 6 (met 10-28-16) Transfers (B,C,W/C) (FIM): 6 Toilet/Commode Transfer(FIM): 6 (met 10-28-16) Toilet/Commode Transfer (QC): 6 (met 10-28-16) Shower Transfer(FIM): 5 (met 10-28-16) Comprehension(FIM): 3 (MET) Expression (FIM): 4 (MET) Social Interaction(FIM): 3 (MET) Problem Solving(FIM): 3 (MET) Memory(FIM): 3 (MET) Additional Goals: 1-Demonstrate ADL Tasks, 2-Verbalize Understanding, 3- ImproveStrength/[place]orsche 1=Demonstrate adherence to instructed precautions during ADL tasks. 2=Patient will verbalize/demonstrate understanding of assistive devices/ modifications for ADL. 3=Patient will improve strength/tolerance for activity to enable patient to perform ADL's. Speech Long-Term Goals Patrol Judge Goals 1. The patient will demonstrate improved cognitive linguistic skills for increased function and safety with ADL's in the least restrictive setting. Time Frame: Two Weeks Comprehension: 3 (MET) Expression: 4 (MET) Social Interaction: 3 (MET) Problem Solvin (MET) Memory: 3 (MET) YVETTE ZUNIGA OT Oct 28, 2016 15:40
== END 2016-10-28 15:15 | disposition home health service (06) | DRG 560 ==
LOC: SURGICAL 10:20 → ENPENDDIS 10-28 15:00
PROVIDERS: ADMIT Physical Medicine & Rehabilitation; ATTEND Physical Medicine & Rehabilitation
DX: Z47.89 Encounter for other orthopedic aftercare (principal); Z98.1 Arthrodesis status; E11.319 Type 2 diabetes mellitus with unspecified diabetic retinopathy without macular edema; E11.42 Type 2 diabetes mellitus with diabetic polyneuropathy; I73.9 Peripheral vascular disease, unspecified; J44.9 Chronic obstructive pulmonary disease, unspecified; I12.9 Hypertensive chronic kidney disease with stage 1 through stage 4 chronic kidney disease, or unspecified chronic kidney disease; N18.9 Chronic kidney disease, unspecified; F05 Delirium due to known physiological condition; F17.210 Nicotine dependence, cigarettes, uncomplicated; M19.90 Unspecified osteoarthritis, unspecified site; E78.00 Pure hypercholesterolemia, unspecified; R25.1 Tremor, unspecified; D64.9 Anemia, unspecified; G47.33 Obstructive sleep apnea (adult) (pediatric); K59.09 Other constipation; G47.00 Insomnia, unspecified; E87.6 Hypokalemia; Z79.4 Long term (current) use of insulin; Z99.81 Dependence on supplemental oxygen; T40.2X5A Adverse effect of other opioids, initial encounter
CPT/HCPCS: 36415; 71020; 74000; 80048; 80053; 82962; 85025; 85027; 85610

== ENCOUNTER 2018-12-22 11:44 | Outpatient (CLI) | payer MEDICARE ==
[~2018-12-22] VITALS: Ht 182.9 cm; Wt 109.8 kg
[~2018-12-22 11:44] MED LIST changes: +ONDA2VIACC IV; -ONDA4VIA28 IV; -PIOG30TA26 PO; +PIOG30TA71 PO; -POLY17PO23 PO; +POLY17PO31 PO; -SCOP1PAT TD; +SCOP1PAT11 TD; +WARF7.5T PO
[2018-12-22] MEDS ORDERED: HYDR-3820 PO (12:12)
[2018-12-22] MEDS ORDERED: FERR-84 PO (12:12)
[2018-12-22] MEDS ORDERED: WARF-48 PO ×2 (12:12)
[2018-12-22] MEDS ORDERED: SODI325T PO (12:12)
[2018-12-22] MEDS ORDERED: ALPR0.5T PO (12:12)
[2018-12-22] MEDS ORDERED: TRIA0.2581 PO (12:12)
[2018-12-22] MEDS ORDERED: TAMS0.4C98 PO (12:12)
[2018-12-22] MEDS ORDERED: GABA-486 PO (12:12)
[2018-12-22 12:19] VITALS: BP 123/87
--- NOTE | 2018-12-22 13:05 | Diagnostic Imaging Report ---
CLINICAL INDICATION: Preop chest x-ray. EXAM: Chest x-ray PA and lateral views. COMPARISONS: Chest x-ray dated 10/23/2016. FINDINGS: Again seen are increased lung markings throughout both lungs, likely related to scarring/chronic lung changes. There is no interval lung infiltrate. Stable calcified granuloma in the left lung base. There is no pleural effusion or pneumothorax. Pulmonary vasculature and cardiac silhouettes are within normal limits. Interval placement of neurostimulator electrode overlying the midthoracic spine. There are degenerative spurs involving the thoracic spine. IMPRESSION: 1: There is no interval radiographic evidence of acute cardiopulmonary process. 2: Interval placement of nerve stimulator electrode overlying the midthoracic spine. Otherwise, stable chest x-ray exam. Dictated by: Dictated on workstation # [id number]
[2018-12-22 13:15] LABS: BASOPHILS % (AUTO) 0 % (0-10); EOSINOPHILS # (AUTO) 0.1 10^3/uL (0.0-0.3); EOSINOPHILS % (AUTO) 2 % (0-10); HEMATOCRIT 39 % (40-54); HEMOGLOBIN 12.9 G/DL (13.3-17.7); LYMPHOCYTES # (AUTO) 1.2 X 10^3 (1.0-4.0); LYMPHOCYTES % (AUTO) 17 % (12-44); MEAN CORPUSCULAR HEMOGLOBIN 34 PG (25-34); MEAN CORPUSCULAR HGB CONC 33 G/DL (32-36); MEAN CORPUSCULAR VOLUME 103 FL (80-99); MEAN PLATELET VOLUME 10.3 FL (7.4-10.4); MONOCYTES # (AUTO) 0.7 X 10^3 (0.0-1.0); MONOCYTES % (AUTO) 11 % (0-12); NEUTROPHILS # (AUTO) 4.8 X 10^3 (1.8-7.8); NEUTROPHILS % (AUTO) 70 % (42-75); PLATELET COUNT 148 10^3/uL (130-400); RED CELL DISTRIBUTION WIDTH 14.5 % (10.0-14.5); WHITE BLOOD COUNT 6.9 10^3/uL (4.3-11.0)
[2018-12-22 13:31] LABS: CALCIUM 9.5 MG/DL (8.5-10.1); CREATININE SERUM 2.16 MG/DL (0.60-1.30); POTASSIUM 4.4 MMOL/L (3.6-5.0)
== END 2018-12-22 13:54 | disposition home or self-care (01) ==
LOC: PREOP 11:44
PROVIDERS: ATTEND Otolaryngology Otolaryngology/Facial Plastic Surgery
DX: Z01.812 Encounter for preprocedural laboratory examination (principal); Z01.811 Encounter for preprocedural respiratory examination; J38.3 Other diseases of vocal cords; Z96.89 Presence of other specified functional implants
CPT/HCPCS: 36415; 71046; 80048; 85025; 87081

== ENCOUNTER 2018-12-29 06:18 | Day surgery (SDC) | payer MEDICARE ==
[2018-12-29] VITALS (9 sets, daily range): BP systolic 133–165; BP diastolic 76–94
[~2018-12-29] VITALS: Ht 182.9 cm; Wt 109.8 kg
[~2018-12-29 06:18] MED LIST changes: +ALPR0.5T PO; +FERR-84 PO; +GABA-486 PO; +SODI325T PO; +TAMS0.4C98 PO; +TRIA0.2581 PO
[2018-12-29] MEDS ORDERED: LACTATED RINGERS 1,000 ML IV PRN (06:35)
--- NOTE | 2018-12-29 06:58 | Progress Note-Pre Operative ---
Pre-Operative Progress Note H&P Reviewed The H&P was reviewed, patient examined and no changes noted. Date Seen by Provider: Dec 29, 2018 Time Seen by Provider: 06:30 Date H&P Reviewed: Dec 29, 2018 Time H&P Reviewed: 06:30 Pre-Operative Diagnosis: Vocal Cord Lesion, Hoarseness YOHANA HDEZ MD Dec 29, 2018 06:57
[2018-12-29 07:11] LABS: INR 1.1 (0.8-1.4); PROTHROMBIN TIME PATIENT 14.4 SEC (12.2-14.7)
[2018-12-29] MEDS ORDERED: proPOfol 200 MG/20 ML (DIPRIVAN) VIAL IV ONE (07:13)
[2018-12-29] MEDS ORDERED: ONDANSETRON 4 MG/2 ML (SDV) Z0FRAN ONE (07:13)
[2018-12-29] MEDS ORDERED: fentaNYL INJECTION 100 MCG/2 ML AMP ONE (07:13)
[2018-12-29] MEDS ORDERED: SUCCINYLCHOLINE INJ 100 MG/5 ML SYR ONE (07:13)
[2018-12-29] MEDS ORDERED: LIDOCAINE PF 2% 5 ML (XYLOCAINE) VIAL ONE (07:13)
[2018-12-29] MEDS ORDERED: LIDOCAINE/EPI 1%-1:100,000 (XYLOCAINE) 20ML ONE (07:13)
[2018-12-29] MEDS ORDERED: ROCURONIUM 10 MG/ML 5 ML SYRINGE IV ONE (07:13)
[2018-12-29] MEDS ORDERED: MIDAZOLAM 2 MG/2 ML (VERSED) VIAL ONE (07:14)
[2018-12-29] MEDS ORDERED: SEVOFLURANE (ULTANE) 15 ML INHAL SOLN ONE (07:17)
--- NOTE | 2018-12-29 07:45 | NUR ---
Initial visit with the pt and his , Rohini prior to procedure. The pt said he has been hoarse for five months, and would be happy if he could get "even 50% of my voice back." He and his have been over 50 years and attend [facility] in [place], [place] where they have attended approximately 40 years. They welcomed prayer and expressed appreciation for spiritual support before surgery. 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
[2018-12-29] MEDS ORDERED: GLYCOPYRROLATE 0.2 MG/ML (ROBINUL) 2 ML VIAL ONE (08:22)
[2018-12-29] MEDS ORDERED: NEOSTIGMINE 3 MG/3 ML VIAL ONE (08:22)
[2018-12-29] MEDS ORDERED: DEXAMETHASONE 10 MG/ML (DECADRON) 1 ML VIAL ONE (08:23)
--- NOTE | 2018-12-29 08:34 | Progress Note-Post Operative ---
Post-Operative Progess Note Surgeon (s)/Mixing Supervisor (s) Surgeon YOHANA HDEZ MD Mixing Supervisor n/a Pre-Operative Diagnosis Vocal Cord Lesion, Hoarseness Post-Operative Diagnosis same Post-Op Procedure Note Date of Procedure: Dec 29, 2018 Name of Procedure Performed: Direct Laryngoscopy with Removal of Left False Cord Mass Description & Findings Description and Findings: n/a Anesthesia Type get Estimated Blood Loss minimal Packing none. Specimen(s) collected/removed left laryngeal mass to pathology for permanents YOHANA HDEZ MD Dec 29, 2018 08:33
[2018-12-29] MEDS ORDERED: HYDROcodone/APAP 5 MG/325 MG (LORTAB) TAB PO PRN (08:45)
[2018-12-29] MEDS ORDERED: ACETAMINOPHEN 325 MG TABLET PO PRN (08:45)
[2018-12-29] MEDS ORDERED: ONDANSETRON 4 MG/2 ML (SDV) Z0FRAN IVP PRN (08:45)
[2018-12-29] MEDS ORDERED: PROMETHAZINE INJ 25 MG/ML (PHENERGAN) AMP IV PRN (08:45)
[2018-12-29] MEDS ORDERED: morphine INJ 10 MG/ML 1ML (SYR OR VIAL) IVP ONE (08:45)
[2018-12-29] MEDS ORDERED: MEPERIDINE (DEMEROL) INJ 50 MG/ML IVP ONE (08:45)
[2018-12-29] MEDS ORDERED: HYDR-3812 PO (09:49)
--- NOTE | 2018-12-29 13:28 | Anesthesia-General Post-Op ---
General Patient Condition Mental Status/LOC: Same as Preop Cardiovascular: Satisfactory Nausea/Vomiting: Absent Respiratory: Satisfactory Pain: Controlled Complications: Absent Post Op Complications Complications None Follow Up Care/Instructions Patient Instructions None needed. Anesthesia/Patient Condition Patient Condition Patient is doing well, no complaints, stable vital signs, no apparent adverse anesthesia problems. No complications reported per nursing. DENISE RIDER CRNA Dec 29, 2018 13:28
== END 2018-12-29 10:40 | disposition home or self-care (01) ==
LOC: SDC 06:18
PROVIDERS: ATTEND Otolaryngology Otolaryngology/Facial Plastic Surgery
DX: J38.3 Other diseases of vocal cords (principal); K21.9 Gastro-esophageal reflux disease without esophagitis; I10 Essential (primary) hypertension; G47.33 Obstructive sleep apnea (adult) (pediatric); E78.5 Hyperlipidemia, unspecified; J44.9 Chronic obstructive pulmonary disease, unspecified; G62.9 Polyneuropathy, unspecified; H61.23 Impacted cerumen, bilateral; E11.51 Type 2 diabetes mellitus with diabetic peripheral angiopathy without gangrene; Z87.891 Personal history of nicotine dependence; Z79.899 Other long term (current) drug therapy; Z79.02 Long term (current) use of antithrombotics/antiplatelets
CPT/HCPCS: 36415; 85610; 88305; 88342